=== PATIENT | male | born 1930 | race Caucasian/White ===

== ENCOUNTER → 2017-01-07 | Outpatient (CLI) | payer MEDICARE, OTHER ==
[2017-01-07 12:21] LABS: Basophils # (auto) 0 uL; Basophils % (auto) 0.6 % (0.0-2.0); Eosinophils # (auto) 0.3 uL; Hemoglobin 12.7 g/dL (13.5-17.5); Lymphocytes # (auto) 1.6 uL; Lymphocytes % (auto) 28.9 % (10.0-50.0); Mean Corpuscular Hemoglobin 28.2 pg (28.0-32.0); Mean Corpuscular Hgb Conc. 32.5 g/dL (32.0-36.0); Mean Corpuscular Volume 86.8 fL (80.0-100.0); Mean Platelet Volume 8.1 fL (7.4-10.4); Monocytes # (auto) 0.6 uL; Monocytes % (auto) 10.9 % (0.0-12.0); Neutrophils # (auto) 2.9 uL; Neutrophils % (auto) 53.6 % (37.0-80.0); Platelet Count (auto) 283 10^3/uL (140-450); Red Cell Distribution Width 17.1 % (11.6-16.0); White Blood Cell 5.4 10^3/uL (4.4-10.8)
[2017-01-07 12:22] LABS: Urine Bilirubin Negative (Negative); Urine Blood Negative /uL (Negative); Urine Color Yellow (Yellow); Urine Glucose Normal (Normal); Urine Ketone Negative (Negative); Urine Nitrite Negative (Negative); Urine Urobilinogen Normal (Negative)
[2017-01-07 13:15] LABS: Albumin 3.7 g/dL (3.4-5.0); BUN/Creatinine Ratio 25.4; Bilirubin, Direct 0.1 mg/dL (0-0.2); Bilirubin, Total 0.3 mg/dL (0.2-1.0); Calcium 9.6 mg/dL (8.5-10.1); Potassium 4.6 mmol/L (3.5-5.1)
== END | disposition home or self-care (01) ==
LOC: LAB 08:16
PROVIDERS: ATTEND Internal Medicine Cardiovascular Disease
DX: I10 Essential (primary) hypertension (principal); E78.00 Pure hypercholesterolemia, unspecified; K74.1 Hepatic sclerosis; E11.9 Type 2 diabetes mellitus without complications; R97.20 Elevated prostate specific antigen [PSA]; R53.81 Other malaise; E03.9 Hypothyroidism, unspecified; D64.9 Anemia, unspecified; E55.9 Vitamin D deficiency, unspecified; N39.0 Urinary tract infection, site not specified
CPT/HCPCS: 36415; 80048; 80061; 80076; 81003; 82306; 83036; 84153; 84403; 84443; 85025

== ENCOUNTER → 2017-06-14 | Outpatient (CLI) | payer MEDICARE, OTHER ==
[~2017-06-14] MED LIST: ASPI-231 PO; CELE200C PO; LEVO25TA6 PO; METF-371 PO; OMEP20CA74 OR; RAMI2.5C33 PO
== END | disposition home or self-care (01) ==
LOC: Rad HDHVI 10:53
PROVIDERS: ATTEND Internal Medicine Cardiovascular Disease
DX: I10 Essential (primary) hypertension (principal); E11.9 Type 2 diabetes mellitus without complications
CPT/HCPCS: 93306

== ENCOUNTER → 2017-06-21 | Outpatient (CLI) | payer MEDICARE, OTHER ==
[2017-06-21 12:30] LABS: Albumin 3.2 g/dL (3.4-5.0); BUN/Creatinine Ratio 18.6; Bilirubin, Total 0.3 mg/dL (0.2-1.0); Potassium 4.2 mmol/L (3.5-5.1); Total Protein 7.4 g/dL (6.4-8.2)
== END | disposition home or self-care (01) ==
LOC: LAB 09:09
PROVIDERS: ATTEND Internal Medicine Cardiovascular Disease
DX: I10 Essential (primary) hypertension (principal); R97.20 Elevated prostate specific antigen [PSA]
CPT/HCPCS: 36415; 80053; 84153

== ENCOUNTER → 2017-07-25 | Outpatient (CLI) | payer MEDICARE, OTHER ==
[2017-07-25 12:53] LABS: Basophils # (auto) 0 uL; Basophils % (auto) 0.7 % (0.0-2.0); Eosinophils # (auto) 0.3 uL; Eosinophils % (auto) 5.5 % (0.0-7.0); Hematocrit 42.6 % (41.0-53.0); Lymphocytes # (auto) 1.4 uL; Lymphocytes % (auto) 26.8 % (10.0-50.0); Mean Corpuscular Hemoglobin 29.5 pg (28.0-32.0); Mean Corpuscular Hgb Conc. 32.9 g/dL (32.0-36.0); Mean Corpuscular Volume 89.9 fL (80.0-100.0); Mean Platelet Volume 7.3 fL (6.9-10.8); Monocytes # (auto) 0.7 uL; Monocytes % (auto) 12.9 % (0.0-12.0); Neutrophils # (auto) 2.8 uL; Neutrophils % (auto) 54.1 % (37.0-80.0); Nucleated Red Blood Cells % 0.5 %; Platelet Count (auto) 329 10^3/uL (140-450); Red Cell Distribution Width 14.6 % (11.8-14.3); White Blood Cell 5.2 10^3/uL (4.4-10.8)
== END | disposition home or self-care (01) ==
LOC: LAB 08:46
PROVIDERS: ATTEND Internal Medicine Cardiovascular Disease
DX: E03.9 Hypothyroidism, unspecified (principal); D64.9 Anemia, unspecified; R53.81 Other malaise
CPT/HCPCS: 36415; 84403; 84443; 85025

== ENCOUNTER → 2018-01-26 | Outpatient (CLI) | payer MEDICARE, OTHER ==
[2018-01-26 12:10] LABS: Urine Blood Negative /uL (Negative); Urine Specific Gravity 1.006 (1.001-1.035)
[2018-01-26 12:15] LABS: Basophils # (auto) 0 uL; Basophils % (auto) 0.6 % (0.0-2.0); Eosinophils # (auto) 0.4 uL; Eosinophils % (auto) 8.1 % (0.0-7.0); Hematocrit 37.3 % (41.0-53.0); Hemoglobin 12.3 g/dL (13.5-17.5); Lymphocytes # (auto) 1.6 uL; Lymphocytes % (auto) 31.6 % (10.0-50.0); Mean Corpuscular Hemoglobin 30.2 pg (28.0-32.0); Mean Corpuscular Volume 91.7 fL (80.0-100.0); Monocytes # (auto) 0.6 uL; Monocytes % (auto) 11.4 % (0.0-12.0); Neutrophils # (auto) 2.4 uL; Neutrophils % (auto) 48.3 % (37.0-80.0); Nucleated Red Blood Cells % 0.6 %; Platelet Count (auto) 305 10^3/uL (140-450); Red Blood Cells 4.06 10^6/uL (4.5-5.90); Red Cell Distribution Width 13.7 % (11.8-14.3); White Blood Cell 5.1 10^3/uL (4.4-10.8)
[2018-01-26 12:18] LABS: Albumin 3.3 g/dL (3.4-5.0); BUN/Creatinine Ratio 14.5; Bilirubin, Total 0.5 mg/dL (0.2-1.0); Calcium 9.3 mg/dL (8.5-10.1); Potassium 4.2 mmol/L (3.5-5.1); Total Protein 7.8 g/dL (6.4-8.2)
[2018-01-26 12:30] LABS: Free T4 (Free Thyroxine) 0.94 ng/dL (0.89-1.76); Prostate Specific Antigen 0.46 ng/mL (0.0-4.0)
== END | disposition home or self-care (01) ==
LOC: LAB 08:02
PROVIDERS: ATTEND Internal Medicine
DX: E78.5 Hyperlipidemia, unspecified (principal); D64.9 Anemia, unspecified; I10 Essential (primary) hypertension; E11.9 Type 2 diabetes mellitus without complications; E03.9 Hypothyroidism, unspecified; E55.9 Vitamin D deficiency, unspecified; R53.81 Other malaise; R97.20 Elevated prostate specific antigen [PSA]; D51.9 Vitamin B12 deficiency anemia, unspecified; N39.0 Urinary tract infection, site not specified
CPT/HCPCS: 36415; 80053; 80061; 81003; 82306; 82607; 83036; 84153; 84403; 84439; 84443; 85025

== ENCOUNTER → 2018-05-16 | Outpatient (CLI) | payer MEDICARE, BC ==
[2018-05-16 12:26] LABS: Basophils # (auto) 0 uL; Basophils % (auto) 0.8 % (0.0-2.0); Eosinophils # (auto) 0.3 uL; Eosinophils % (auto) 8.4 % (0.0-7.0); Hematocrit 37.5 % (41.0-53.0); Hemoglobin 12.4 g/dL (13.5-17.5); Lymphocytes # (auto) 1.3 uL; Lymphocytes % (auto) 35.5 % (10.0-50.0); Mean Corpuscular Hemoglobin 30.1 pg (28.0-32.0); Mean Corpuscular Hgb Conc. 33.2 g/dL (32.0-36.0); Mean Corpuscular Volume 90.7 fL (80.0-100.0); Monocytes # (auto) 0.5 uL; Monocytes % (auto) 13.1 % (0.0-12.0); Neutrophils # (auto) 1.6 uL; Neutrophils % (auto) 42.2 % (37.0-80.0); Nucleated Red Blood Cells % 0.4 %; Platelet Count (auto) 263 10^3/uL (140-450); Red Blood Cells 4.13 10^6/uL (4.5-5.90); White Blood Cell 3.8 10^3/uL (4.4-10.8)
[2018-05-16 12:51] LABS: Albumin 3.5 g/dL (3.4-5.0); BUN/Creatinine Ratio 20.6; Bilirubin, Total 0.4 mg/dL (0.2-1.0); Calcium 8.9 mg/dL (8.5-10.1); Potassium 4.2 mmol/L (3.5-5.1); Total Protein 7.4 g/dL (6.4-8.2)
== END | disposition home or self-care (01) ==
LOC: LAB 09:46
PROVIDERS: ATTEND Internal Medicine Cardiovascular Disease
DX: D64.9 Anemia, unspecified (principal); E11.9 Type 2 diabetes mellitus without complications; I10 Essential (primary) hypertension; Z79.82 Long term (current) use of aspirin; Z79.899 Other long term (current) drug therapy
CPT/HCPCS: 36415; 80053; 83036; 85025

== ENCOUNTER → 2018-07-20 | Outpatient (CLI) | payer MEDICARE, BC | END | disposition home or self-care (01) | LOC: Rad HDHVI 09:57 | PROVIDERS: ATTEND Internal Medicine Cardiovascular Disease | DX: E11.9 Type 2 diabetes mellitus without complications (principal); G47.33 Obstructive sleep apnea (adult) (pediatric); R55 Syncope and collapse | CPT/HCPCS: 93306 ==

== ENCOUNTER → 2018-11-23 | Outpatient (CLI) | payer MEDICARE, BC ==
[2018-11-23 15:00] LABS: Basophils # (auto) 0 uL; Basophils % (auto) 0.4 % (0.0-2.0); Eosinophils # (auto) 0.1 uL; Eosinophils % (auto) 1.6 % (0.0-7.0); Hematocrit 38.5 % (41.0-53.0); Hemoglobin 13.1 g/dL (13.5-17.5); Lymphocytes # (auto) 1.9 uL; Lymphocytes % (auto) 31.1 % (10.0-50.0); Mean Corpuscular Hemoglobin 31.4 pg (28.0-32.0); Mean Corpuscular Hgb Conc. 33.9 g/dL (32.0-36.0); Mean Corpuscular Volume 92.6 fL (80.0-100.0); Monocytes # (auto) 0.6 uL; Monocytes % (auto) 9.5 % (0.0-12.0); Neutrophils # (auto) 3.5 uL; Neutrophils % (auto) 57.4 % (37.0-80.0); Nucleated Red Blood Cells % 0.2 %; Platelet Count (auto) 256 10^3/uL (140-450); Red Blood Cells 4.16 10^6/uL (4.5-5.90); Red Cell Distribution Width 14.6 % (11.8-14.3)
[2018-11-23 15:02] LABS: Urine Blood Negative /uL (Negative); Urine Specific Gravity 1.005 (1.001-1.035)
[2018-11-23 15:22] LABS: Albumin 3.7 g/dL (3.4-5.0); BUN/Creatinine Ratio 21.2; Calcium 9.3 mg/dL (8.5-10.1); Potassium 3.8 mmol/L (3.5-5.1)
[2018-11-23 15:25] LABS: Free T4 (Free Thyroxine) 1.48 ng/dL (0.89-1.76); Prostate Specific Antigen 0.29 ng/mL (0.0-4.0)
[2018-11-23 15:26] LABS: Bilirubin, Total 0.6 mg/dL (0.2-1.0); Total Protein 7.5 g/dL (6.4-8.2)
== END | disposition home or self-care (01) ==
LOC: LAB 13:32
PROVIDERS: ATTEND Internal Medicine Cardiovascular Disease
DX: E55.9 Vitamin D deficiency, unspecified (principal); E03.9 Hypothyroidism, unspecified; E11.9 Type 2 diabetes mellitus without complications; C61 Malignant neoplasm of prostate; D51.9 Vitamin B12 deficiency anemia, unspecified; E29.1 Testicular hypofunction; N39.0 Urinary tract infection, site not specified
CPT/HCPCS: 36415; 80053; 80061; 81003; 82306; 82607; 83036; 84153; 84403; 84439; 84443; 85025

== ENCOUNTER → 2019-02-05 | Outpatient (CLI) | payer MEDICARE, BC ==
[~2019-02-05] VITALS: Ht 175.3 cm; Wt 68.0 kg
[~2019-02-05] MED LIST changes: +ADENOSINE 57 MG in GIVE UN-DILUTED 0 ML IV ONE; +ADENOSINE 90 MG/30 ML INJ IV ONE
== END | disposition home or self-care (01) ==
LOC: Rad HDHVI 09:56
PROVIDERS: ATTEND Internal Medicine Cardiovascular Disease
DX: E11.40 Type 2 diabetes mellitus with diabetic neuropathy, unspecified (principal); E11.59 Type 2 diabetes mellitus with other circulatory complications; I10 Essential (primary) hypertension; M19.90 Unspecified osteoarthritis, unspecified site; R07.89 Other chest pain
CPT/HCPCS: 78452; 93005; 96374; 96375; A9500

== ENCOUNTER → 2019-05-01 | Outpatient (CLI) | payer MEDICARE, BC ==
[~2019-05-01] MED LIST changes: -ADENOSINE 57 MG in GIVE UN-DILUTED 0 ML IV ONE; -ADENOSINE 90 MG/30 ML INJ IV ONE
== END | disposition home or self-care (01) ==
LOC: Rad HDHVI 09:57
PROVIDERS: ATTEND Internal Medicine Cardiovascular Disease
DX: I65.23 Occlusion and stenosis of bilateral carotid arteries (principal); R07.89 Other chest pain; R42 Dizziness and giddiness; E11.9 Type 2 diabetes mellitus without complications
CPT/HCPCS: 93880

== ENCOUNTER 2019-12-17 12:10 | Inpatient (IN) | payer MEDICARE, BC ==
[~2019-12-17] VITALS: Ht 175.3 cm; Wt 69.3 kg
[2019-12-17] MEDS ORDERED: IPRATROPIUM BROM 0.5 MG/2.5ML INH SOL HHN ONE (12:30)
[2019-12-17] MEDS ORDERED: ALBUTEROL SULF 2.5 MG/0.5ML(0.5%) NEB SOLN HHN ONE (12:30)
[2019-12-17] MEDS ORDERED: levoFLOXacin 500MG 100 ML IV ONE (12:30)
[2019-12-17] MEDS ORDERED: ACETAMINOPHEN 325 MG TAB PO ONE ×3 (12:42→12:45)
[2019-12-17 13:13] LABS: Hemoglobin 11.5 g/dL (13.5-17.5); Mean Corpuscular Hemoglobin 26.4 pg (28.0-32.0); Red Blood Cells 4.35 10^6/uL (4.5-5.90)
[2019-12-17 13:14] LABS: Hematocrit 36.2 % (41.0-53.0); Mean Corpuscular Hgb Conc. 31.8 g/dL (32.0-36.0); Mean Corpuscular Volume 83.3 fL (80.0-100.0); Platelet Count (auto) 206 10^3/uL (140-450); Red Cell Distribution Width 16.1 % (11.8-14.3); White Blood Cell 10.2 10^3/uL (4.4-10.8)
[2019-12-17 13:19] LABS: Band Neutrophils % (manual) 0; Basophils % (manual) 0 (0.0-2.0); Blast Cells 0; Metamyelocytes % 0; Myelocytes % 0; Promyelocytes % 0; Reactive Lymphocytes 0
[2019-12-17 13:29] LABS: Albumin 2.6 g/dL (3.4-5.0); Calcium 9.1 mg/dL (8.5-10.1); Potassium 3.9 mmol/L (3.5-5.1)
[2019-12-17 13:34] LABS: BUN/Creatinine Ratio 40.2; Bilirubin, Total 1.4 mg/dL (0.2-1.0); Total Protein 7.4 g/dL (6.4-8.2)
[2019-12-17 13:35] LABS: Lactic Acid w/Reflex 2.4 mmol/L (0.4-2.0)
[2019-12-17 13:44] LABS: Eosinophils % (manual) 10 (0-7); Lymphocytes % (manual) 28 (10.0-50.0); Monocytes % (manual) 7 (0-12)
[2019-12-17] MEDS ORDERED: SODIUM CHLORIDE 0.9% 2,000 ML IV ONE (14:00)
[2019-12-17] MEDS ORDERED: ONDANSETRON HCL 4 MG/2 ML VIAL IV PRN (15:30)
[2019-12-17] MEDS ORDERED: MORPHINE SULF INJ 2 MG/ML SYRINGE 1ML IV PRN ×2 (15:30)
[2019-12-17] MEDS ORDERED: NITROGLYCERIN 0.4 MG SL TAB SL PRN (15:30)
[2019-12-17] MEDS ORDERED: ASPirin-EC 81 mg tab PO ONE (15:30)
[2019-12-17] MEDS ORDERED: HYDROcodone-ACET 5/325MG TAB PO PRN (15:30)
[2019-12-17] MEDS ORDERED: DEXTROSE (50%) 50ML SYRG IV PRN (15:30)
[2019-12-17] MEDS ORDERED: VANCOMYCIN PER PHARMACY 0 MG IV SCH (15:30)
[2019-12-17 15:32] VITALS: BP 92/50
[2019-12-17] MEDS ORDERED: VANCOMYCIN 1GM/250ML 250 ML IV ONE (15:45)
[2019-12-17 16:05] LABS: Urine WBC None Seen /hpf (0 - 3)
[2019-12-17 16:16] LABS: Urine Bacteria NONE SEEN /hpf (None Seen); Urine Blood 1+ /uL (Negative); Urine Mucus FEW (None Seen); Urine Specific Gravity 1.028 (1.001-1.035)
[2019-12-17] MEDS: InsuLIN REG 1unit/0.01ml Soln (100units/ml) SC SCH ×2 (16:31→23:00)
[2019-12-17] MEDS: ACCU-CHEK COMFORT CURVE STRIP VI SCH ×2 (16:31→23:00)
[2019-12-17] MEDS: PIPERACILLIN-TAZOB 3.375GM 100 ML IV SCH (18:12)
[2019-12-17] MEDS: IPRATROPIUM BROM 0.5 MG/2.5ML INH SOL NEB SCH (18:52)
[2019-12-17] MEDS: ATORVASTATIN 20 MG TAB PO SCH (23:00)
[2019-12-18] VITALS (26 sets, daily range): BP systolic 72–111; BP diastolic 42–73
[2019-12-18] MEDS: PIPERACILLIN-TAZOB 3.375GM 100 ML IV SCH ×4 (00:30→22:23)
--- NOTE | 2019-12-18 02:20 | NUR ---
Pt being admitted to ICU GUILHERME CANELA admitted to ICU via gurney on threat monitoring analyst, and portable 02. Patient transferred to bed, connected to ICU monitoring and oxygen, and weighed by bedscale. Patient oriented to Emily moses RN, unit, room, bed, and unit policies regarding patient care and visiting hours. All questions and concerns addressed, patient verbalized understanding.
[2019-12-18] MEDS ORDERED: NOREPINEPHRINE 8 MG/250ML KIT 250 ML IV ONE (03:58)
[2019-12-18] MEDS ORDERED: NOREPINEPHRINE 8 MG/250ML KIT 250 ML IV SCH (04:15)
[2019-12-18 04:23] LABS: Basophils # (auto) 0 10 ^3/uL (0-0.2); Basophils % (auto) 0.1 % (0.0-2.0); Eosinophils # (auto) 0 10 ^3/uL (0-0.8); Lymphocytes # (auto) 0.3 10 ^3/uL (0.4-5.4); Lymphocytes % (auto) 3.3 % (10.0-50.0); Mean Corpuscular Hemoglobin 27.1 pg (28.0-32.0); Mean Corpuscular Hgb Conc. 33.4 g/dL (32.0-36.0); Mean Corpuscular Volume 81.3 fL (80.0-100.0); Monocytes # (auto) 0.3 10 ^3/uL (0-1.3); Monocytes % (auto) 3.7 % (0.0-12.0); Neutrophils # (auto) 8.6 10 ^3/uL (1.6-8.6); Neutrophils % (auto) 92.9 % (37.0-80.0); Nucleated Red Blood Cells % 0.1 %; Platelet Count (auto) 198 10^3/uL (140-450); Red Blood Cells 3.69 10^6/uL (4.5-5.90); Red Cell Distribution Width 15.5 % (11.8-14.3); White Blood Cell 9.3 10^3/uL (4.4-10.8)
[2019-12-18 04:45] LABS: BUN/Creatinine Ratio 45.8; Calcium 8.3 mg/dL (8.5-10.1); Potassium 3.2 mmol/L (3.5-5.1)
[2019-12-18] MEDS: IPRATROPIUM BROM 0.5 MG/2.5ML INH SOL NEB SCH ×4 (06:00→18:17)
[2019-12-18] MEDS: InsuLIN REG 1unit/0.01ml Soln (100units/ml) SC SCH ×4 (06:04→22:00)
[2019-12-18] MEDS: ACCU-CHEK COMFORT CURVE STRIP VI SCH ×4 (06:04→22:24)
--- NOTE | 2019-12-18 08:00 | NUR ---
OPENING Report received from Leora HERRERA. Care initiated and initial assessment complete.
[2019-12-18] MEDS: ASPirin-EC 81 mg tab PO SCH (10:24)
[2019-12-18] MEDS: FAMOTIDINE 20 MG TAB PO SCH (10:24)
[2019-12-18] MEDS: VANCOMYCIN 1GM/250ML 250 ML IV SCH (10:25)
--- NOTE | 2019-12-18 14:00 | NUR ---
BEDSIDE Dr. Frost bedside. New orders received.
[2019-12-18] MEDS ORDERED: POTASSIUM CHL 20 Meq TABLET PO ONE (14:15)
--- NOTE | 2019-12-18 17:50 | NUR ---
PAGED TOBACCO SWEEPER Paged Eusebia TOBACCO SWEEPER. Patient may go to tele. Will let Dr. Benites know patient is being moved.
[2019-12-18] MEDS ORDERED: TAMS0.4C36 PO (18:00)
[2019-12-18] MEDS ORDERED: CLOP75TA28 PO (18:00)
[2019-12-18] MEDS ORDERED: LINA145C OR (18:00)
[2019-12-18] MEDS ORDERED: GLYB2.5T8 PO (18:01)
[2019-12-18] MEDS ORDERED: FOLITAB22 PO (18:01)
[2019-12-18] MEDS ORDERED: [UNRECOGNIZED DRUG - CODE] XX (18:01)
[2019-12-18] MEDS: ALBUTEROL SULF 2.5 MG/0.5ML(0.5%) NEB SOLN NEB SCH (18:17)
--- NOTE | 2019-12-18 18:41 | NUR ---
CALLED FAMILY Called and spoke to Leticia, patients daughter, updated her on COVID19 rule out and transfer orders. All questions and concerns addressed at this time.
--- NOTE | 2019-12-18 19:45 | NUR ---
OPENING NOTE RECEIVED REPORT FROM DAY SHIFT RN AND ASSUMED CARE OF PATIENT. PT RESTING IN BED WHILE EATING DINNER WITH STABLE VITAL SIGNS. 5L NASAL CANNULA APPLIED. NO S/S PF DISTRESS. BED IS LOCKED AND IN THE LOWEST POSITION. EDUCATED PT ELECTRIC APPLIANCE INSTALLER LIGHT USE AND FALL PRECAUTIONS. WILL CONTINUE TO MONITOR AND ASSESS.
--- NOTE | 2019-12-18 20:52 | NUR ---
PT TRANSFERRED TO TELEMETRY FLOOR WITH TELE MONITOR APPLIED IN BED. 5 L NC ON PORTABLE OXYGEN. NO S/S OF DISTRESS NOTED WITH VITAL SIGNS STABLE.
--- NOTE | 2019-12-18 21:00 | NUR ---
PATIENT TRANSFERRED TO ROOM 293 BED B FROM ICU. NO S/S OF DISTRESS NOTED, PATIENT A&OX4 ON 5L NC. NO COMPLAINTS OF PAIN. POC WAS DISCUSSED AND PATIENT EDUCATED ON US OF INCENTIVE SPIROMETER. PATIENT VERBALIZED UNDERSTANDING. BED IS LOCKED IN LOWEST POSITION WITH SIDE RAILS UP X2 FOR SAFETY, CALL LIGHT IS WITHIN REACH AND ENCOURAGED TO CALL FOR ASSISTANCE NEEDED. WILL CONTINUE TO MONITOR Q1HR AND PRN.
[2019-12-18] MEDS: ATORVASTATIN 20 MG TAB PO SCH (22:24)
[2019-12-19] MEDS: VANCOMYCIN 1GM/250ML 250 ML IV SCH (04:18)
[2019-12-19 05:00] VITALS: BP 99/62
[2019-12-19] MEDS: PIPERACILLIN-TAZOB 3.375GM 100 ML IV SCH ×3 (05:52→22:08)
[2019-12-19] MEDS: ALBUTEROL SULF 2.5 MG/0.5ML(0.5%) NEB SOLN NEB SCH ×3 (06:33→18:54)
[2019-12-19] MEDS: IPRATROPIUM BROM 0.5 MG/2.5ML INH SOL NEB SCH ×3 (06:33→18:54)
[2019-12-19] MEDS: ACCU-CHEK COMFORT CURVE STRIP VI SCH ×4 (06:58→22:12)
[2019-12-19] MEDS: InsuLIN REG 1unit/0.01ml Soln (100units/ml) SC SCH ×4 (06:58→22:51)
[2019-12-19 07:05] LABS: Basophils # (auto) 0 10 ^3/uL (0-0.2); Basophils % (auto) 0.3 % (0.0-2.0); Eosinophils # (auto) 0 10 ^3/uL (0-0.8); Eosinophils % (auto) 0.3 % (0.0-7.0); Hematocrit 29.6 % (41.0-53.0); Hemoglobin 9.8 g/dL (13.5-17.5); Lymphocytes # (auto) 0.4 10 ^3/uL (0.4-5.4); Mean Corpuscular Hemoglobin 27.1 pg (28.0-32.0); Mean Corpuscular Hgb Conc. 33.1 g/dL (32.0-36.0); Monocytes # (auto) 0.6 10 ^3/uL (0-1.3); Monocytes % (auto) 5.4 % (0.0-12.0); Neutrophils # (auto) 9.8 10 ^3/uL (1.6-8.6); Nucleated Red Blood Cells % 0.1 %; Platelet Count (auto) 208 10^3/uL (140-450); Red Blood Cells 3.61 10^6/uL (4.5-5.90); Red Cell Distribution Width 15.6 % (11.8-14.3); White Blood Cell 10.9 10^3/uL (4.4-10.8)
[2019-12-19 07:23] LABS: Calcium 8.3 mg/dL (8.5-10.1); Potassium 3.2 mmol/L (3.5-5.1)
--- NOTE | 2019-12-19 07:42 | NUR ---
Opening Shift Note Assumed care of patient. Pt is awake, alert, and oriented x4. Pt is coughing. No S/S of respiratory distress is noted. Patient does not report SOB, nausea,vomiting or pain. Pt is instructed on using IS and IS at bedside. Pt is on 4 lpm NC. Bed is in lowest position, brakes are locked, call light is within reach. POC discussed with the pt. Pt is instructed to call for assistance as needed. Will continue to monitor for changes Q1hr and PRN.
[2019-12-19 09:00] VITALS: BP 103/61
[2019-12-19] MEDS: ASPirin-EC 81 mg tab PO SCH (10:01)
[2019-12-19] MEDS: FAMOTIDINE 20 MG TAB PO SCH (10:02)
[2019-12-19] MEDS ORDERED: FUROSEMIDE 20 MG/2 ML VIAL IV ONE (12:30)
[2019-12-19] MEDS ORDERED: POTASSIUM CHL 20 Meq TABLET PO ONE (12:30)
[2019-12-19 13:00] VITALS: BP 94/61
[2019-12-19 17:24] VITALS: BP 101/66
[2019-12-19 22:00] VITALS: BP 93/54
[2019-12-19] MEDS: ATORVASTATIN 20 MG TAB PO SCH (22:08)
--- NOTE | 2019-12-20 04:41 | NUR ---
Respiratory note: PAGED TO BEDSIDE. PT SPO2 NOTED AT 87% ON 4L NC, PT IS TALKING TO RN, NOT FOCUSING ON BREATHING. PT PLACED ON 6L OXYMIZER, COACHED ON BREATHING. SPO2 INCREASED TO 90%. RN AT BEDSIDE. WILL CONTINUE TO MONITOR.
--- NOTE | 2019-12-20 04:43 | NUR ---
PATIENTS O2 WAS 87% ON NASAL CANNULA AT 4L. RT PAGED AT THAT TIME. PATIENT IS NOW ON OXYMIZER AT 5L AND O2 IS NOW 91. PATIENT HAS NO COMPLAINTS OF FEELING SHORT OF BREATH. WILL CONTINUE TO MONITOR.
[2019-12-20 05:00] VITALS: BP 97/50
[2019-12-20] MEDS: PIPERACILLIN-TAZOB 3.375GM 100 ML IV SCH (06:02)
[2019-12-20 06:12] LABS: Basophils # (auto) 0 10 ^3/uL (0-0.2); Basophils % (auto) 0.2 % (0.0-2.0); Eosinophils # (auto) 0.1 10 ^3/uL (0-0.8); Eosinophils % (auto) 0.6 % (0.0-7.0); Hematocrit 27.1 % (41.0-53.0); Hemoglobin 9.3 g/dL (13.5-17.5); Lymphocytes # (auto) 0.6 10 ^3/uL (0.4-5.4); Lymphocytes % (auto) 6.1 % (10.0-50.0); Mean Corpuscular Hemoglobin 27.6 pg (28.0-32.0); Mean Corpuscular Hgb Conc. 34.1 g/dL (32.0-36.0); Monocytes # (auto) 0.7 10 ^3/uL (0-1.3); Monocytes % (auto) 7.9 % (0.0-12.0); Neutrophils # (auto) 7.7 10 ^3/uL (1.6-8.6); Neutrophils % (auto) 85.2 % (37.0-80.0); Nucleated Red Blood Cells % 0.1 %; Platelet Count (auto) 239 10^3/uL (140-450); Red Blood Cells 3.35 10^6/uL (4.5-5.90); Red Cell Distribution Width 15.6 % (11.8-14.3)
[2019-12-20 06:31] LABS: BUN/Creatinine Ratio 21.6; Calcium 8.5 mg/dL (8.5-10.1)
[2019-12-20] MEDS: InsuLIN REG 1unit/0.01ml Soln (100units/ml) SC SCH ×4 (06:42→21:33)
[2019-12-20] MEDS: ACCU-CHEK COMFORT CURVE STRIP VI SCH ×4 (06:42→21:33)
[2019-12-20] MEDS: ALBUTEROL SULF 2.5 MG/0.5ML(0.5%) NEB SOLN NEB SCH ×3 (06:54→18:51)
--- NOTE | 2019-12-20 07:35 | NUR ---
Opening Shift Note Assumed care of patient. Pt is awake, alert, and oriented x4. Pt is comfortably resting in bd. No S/S of respiratory distress is noted. Patient does not report SOB, nausea,vomiting or pain. Pt is instructed on using IS and IS at bedside. Pt is on 6 lpm O2. Bed is in lowest position, brakes are locked, call light is within reach. POC discussed with the pt. Pt is instructed to call for assistance as needed. Will continue to monitor for changes Q1hr and PRN.
[2019-12-20 09:00] VITALS: BP 100/52
[2019-12-20] MEDS: ASPirin-EC 81 mg tab PO SCH (09:56)
[2019-12-20] MEDS: FAMOTIDINE 20 MG TAB PO SCH (09:56)
[2019-12-20] MEDS: IPRATROPIUM BROM 0.5 MG/2.5ML INH SOL NEB SCH ×3 (11:38→18:52)
--- NOTE | 2019-12-20 12:10 | NUR ---
DOCTOR ERNIE AT BEDSIDE.
[2019-12-20] MEDS ORDERED: FUROSEMIDE 40 MG TAB PO ONE (12:30)
[2019-12-20] MEDS ORDERED: POTASSIUM CHL 20 Meq TABLET PO ONE ×2 (12:30)
--- NOTE | 2019-12-20 12:30 | NUR ---
DOCTOR RIOS AT BEDSIDE.
[2019-12-20 13:00] VITALS: BP 106/53
[2019-12-20 18:16] VITALS: BP 102/50
--- NOTE | 2019-12-20 19:15 | NUR ---
Opening Shift Note Assumed care of patient, awake, alert and oriented x4, on oxygen at 4L via NC, even and unlabored respirations, no S/S of distress/SOB or pain. Bed in lowest locked position, side rails up x2, call light within reach, and patient able to turn independently. Instructed on POC and to call for assist PRN, will continue to monitor for changes Q1hr and PRN.
[2019-12-20] MEDS: ATORVASTATIN 20 MG TAB PO SCH (21:33)
[2019-12-20] MEDS: DOXYCYCLINE 100 MG TAB/CAP PO SCH (21:33)
[2019-12-20 22:00] VITALS: BP 108/64
[2019-12-20] MEDS ORDERED: POTASSIUM EFFERVESENT TAB 25 MEQ GT SCH (22:00)
[2019-12-21 05:00] VITALS: BP 106/59
[2019-12-21] MEDS: ALBUTEROL SULF 2.5 MG/0.5ML(0.5%) NEB SOLN NEB SCH ×3 (05:49→18:29)
[2019-12-21] MEDS: IPRATROPIUM BROM 0.5 MG/2.5ML INH SOL NEB SCH ×3 (05:49→18:29)
[2019-12-21] MEDS: ACCU-CHEK COMFORT CURVE STRIP VI SCH ×4 (06:54→21:45)
[2019-12-21] MEDS: InsuLIN REG 1unit/0.01ml Soln (100units/ml) SC SCH ×4 (06:54→21:47)
[2019-12-21 07:12] LABS: BUN/Creatinine Ratio 23.4; Calcium 8.4 mg/dL (8.5-10.1); Potassium 3.2 mmol/L (3.5-5.1)
--- NOTE | 2019-12-21 08:00 | NUR ---
Opening Shift Note Received report from Talib HERRERA. Assumed care of patient, awake and alert. No S/S of distress/SOB or pain. NOted productive cough. Instructed on POC and to call for assist PRN, will continue to monitor for changes Q1hr and PRN.
[2019-12-21 09:00] VITALS: BP 93/46
[2019-12-21] MEDS: FUROSEMIDE 40 MG TAB PO SCH (10:00)
[2019-12-21] MEDS: DOXYCYCLINE 100 MG TAB/CAP PO SCH ×2 (10:28→21:44)
[2019-12-21] MEDS: ASPirin-EC 81 mg tab PO SCH (10:28)
[2019-12-21] MEDS: FAMOTIDINE 20 MG TAB PO SCH (10:28)
[2019-12-21] MEDS: POTASSIUM CHL 20 Meq TABLET PO SCH (10:28)
[2019-12-21 13:00] VITALS: BP 106/62
--- NOTE | 2019-12-21 13:05 | NUR ---
Dr Frost at [facility] Addendum: 12/21/19 at 1312 by DB COSTA RN received new verbal order from dr frost.see orders
--- NOTE | 2019-12-21 15:25 | NUR ---
INFORMED DR RIOS ABOUT PATIENT SEEMS TO BE MORE CONFUSED.
--- NOTE | 2019-12-21 15:30 | NUR ---
PATIENT IS TAKEN TO RADIOLOGY BY BED FOR CT SCAN OF THE HEAD.
--- NOTE | 2019-12-21 15:39 | NUR ---
PATIENT IS BACK TO ROOM. ASSISTED BY 2 TECHS. POSITIONED PATIENT COMFORTABLY. HEAD CT DONE.
--- NOTE | 2019-12-21 15:52 | NUR ---
assessment Patient is a 89 year old male who is alert and oriented. Patients cognitive abilities are intact. Prior to admission patient lived home with family and functioned independently. Patient informed me he is able to care for his own ADLs. Per patient he will return home to his prior living arrangements post discharge and family will transport him home. Patient has a fww for home use. Patients PCP is Dr Benites. Patient informed me he has no concerns at home. Patient may need some home health after his hospital stay. I informed patient he has a right to speak to a director of social work regarding all care. I informed patient he has a right to participate in any and all discharge planning. Patient has a POA and advanced directive. Patient verbalized understanding and agreed to discharge plan. Addendum: 12/21/19 at 1556 by Lis RICHARDS Amended: Links added.
[2019-12-21 16:23] VITALS: BP 112/64
--- NOTE | 2019-12-21 19:10 | NUR ---
Opening Shift Note Assumed care of patient, awake, alert and oriented x4, on 6L of oxygen via oxymizer, even and unlabored respirations, no S/S of distress/SOB or pain. Bed in lowest locked position, side rails up x2, call light within reach, and patient is able to turn independently. Instructed on POC and to call for assist PRN, will continue to monitor for changes Q1hr and PRN.
[2019-12-21 21:24] VITALS: BP 105/65
[2019-12-21] MEDS: ATORVASTATIN 20 MG TAB PO SCH (21:44)
[2019-12-22 05:16] VITALS: BP 105/59
[2019-12-22 06:15] LABS: Basophils # (auto) 0 10 ^3/uL (0-0.2); Basophils % (auto) 0.1 % (0.0-2.0); Eosinophils # (auto) 0.1 10 ^3/uL (0-0.8); Eosinophils % (auto) 0.9 % (0.0-7.0); Mean Corpuscular Volume 80.2 fL (80.0-100.0); Monocytes # (auto) 0.6 10 ^3/uL (0-1.3); Nucleated Red Blood Cells % 0.1 %; Red Cell Distribution Width 15.8 % (11.8-14.3); White Blood Cell 8.7 10^3/uL (4.4-10.8)
[2019-12-22 06:20] LABS: Lymphocytes # (auto) 0.7 10 ^3/uL (0.4-5.4); Lymphocytes % (auto) 8.2 % (10.0-50.0); Mean Corpuscular Hemoglobin 26.7 pg (28.0-32.0); Mean Corpuscular Hgb Conc. 33.3 g/dL (32.0-36.0); Monocytes % (auto) 6.5 % (0.0-12.0); Neutrophils # (auto) 7.4 10 ^3/uL (1.6-8.6); Neutrophils % (auto) 84.3 % (37.0-80.0); Platelet Count (auto) 355 10^3/uL (140-450); Red Blood Cells 3.74 10^6/uL (4.5-5.90)
[2019-12-22 06:28] LABS: BUN/Creatinine Ratio 21.7; Calcium 8.7 mg/dL (8.5-10.1); Potassium 3.4 mmol/L (3.5-5.1)
[2019-12-22] MEDS: ALBUTEROL SULF 2.5 MG/0.5ML(0.5%) NEB SOLN NEB SCH ×3 (06:42→18:24)
[2019-12-22] MEDS: IPRATROPIUM BROM 0.5 MG/2.5ML INH SOL NEB SCH ×3 (06:42→18:24)
[2019-12-22] MEDS: ACCU-CHEK COMFORT CURVE STRIP VI SCH ×4 (06:43→22:00)
[2019-12-22] MEDS: InsuLIN REG 1unit/0.01ml Soln (100units/ml) SC SCH ×4 (06:43→22:00)
--- NOTE | 2019-12-22 07:45 | NUR ---
FAMILY CALLED STATION PASSWORD VERIFIED AND FAMILY UPDATED ON POC
[2019-12-22 09:00] VITALS: BP 101/69
[2019-12-22] MEDS: FUROSEMIDE 40 MG TAB PO SCH (10:00)
[2019-12-22] MEDS: DOXYCYCLINE 100 MG TAB/CAP PO SCH ×2 (10:14→22:39)
[2019-12-22] MEDS: POTASSIUM CHL 20 Meq TABLET PO SCH (10:14)
[2019-12-22] MEDS: ASPirin-EC 81 mg tab PO SCH (10:14)
[2019-12-22] MEDS: FAMOTIDINE 20 MG TAB PO SCH (10:15)
--- NOTE | 2019-12-22 12:00 | NUR ---
FAMILY CALLED STATION PASSWORD VERIFIED AND FAMILY UPDATED ON POC
[2019-12-22] MEDS ORDERED: POTASSIUM EFFERVESENT TAB 25 MEQ PO ONE (12:15)
--- NOTE | 2019-12-22 12:32 | NUR ---
SPO2 CHECK SPO2 95% ON 6L OXYMIZER OXYGEN TITRATED DOWN TO 5L OXYMIZER
[2019-12-22 13:00] VITALS: BP 119/61
--- NOTE | 2019-12-22 14:22 | NUR ---
SPO2 CHECK SPO2 94% ON 5L OXYMIZER OXYGEN TITRATED DOWN TO 4L OXYMIZER
--- NOTE | 2019-12-22 15:00 | NUR ---
SPO2 CHECK SPO2 88% ON 4L OXYMIZER OXYGEN TITRATED DOWN TO 5L OXYMIZER
--- NOTE | 2019-12-22 15:52 | NUR ---
FAMILY CALLED STATION PASSWORD VERIFIED AND FAMILY UPDATED ON POC
[2019-12-22 17:00] VITALS: BP 113/68
--- NOTE | 2019-12-22 19:00 | NUR ---
Opening Shift Note Assumed care of patient, awake and alert. No S/S of distress/SOB or pain. Instructed on POC and to call for assist PRN, will continue to monitor for changes Q1hr and PRN.
[2019-12-22 21:13] VITALS: BP 97/47
[2019-12-22] MEDS: ATORVASTATIN 20 MG TAB PO SCH (22:39)
[2019-12-23 04:38] VITALS: BP 92/51
[2019-12-23 06:08] LABS: Magnesium 1.6 mg/dL (1.6-2.6)
[2019-12-23] MEDS: ALBUTEROL SULF 2.5 MG/0.5ML(0.5%) NEB SOLN NEB SCH ×3 (06:18→18:55)
[2019-12-23] MEDS: IPRATROPIUM BROM 0.5 MG/2.5ML INH SOL NEB SCH ×3 (06:18→18:56)
[2019-12-23] MEDS: InsuLIN REG 1unit/0.01ml Soln (100units/ml) SC SCH ×4 (06:58→22:00)
[2019-12-23] MEDS: ACCU-CHEK COMFORT CURVE STRIP VI SCH ×4 (06:58→22:00)
--- NOTE | 2019-12-23 07:22 | NUR ---
Opening Shift Note Assumed care of patient, awake, alert and oriented x4, on 5L of oxygen via oxymizer, even and unlabored respirations, no S/S of distress/SOB or pain. Bed in lowest locked position, side rails up x2, call light within reach, and patient is able to turn independently. Instructed on POC and to call for assist PRN, will continue to monitor for changes Q1hr and PRN.
[2019-12-23 08:49] VITALS: BP 92/51
[2019-12-23 09:00] VITALS: BP_SYST 119; BP_SYST 126; BP_DIAS 57; BP_DIAS 75
[2019-12-23] MEDS: FUROSEMIDE 40 MG TAB PO SCH (09:49)
[2019-12-23] MEDS: POTASSIUM CHL 20 Meq TABLET PO SCH (09:49)
[2019-12-23] MEDS: FAMOTIDINE 20 MG TAB PO SCH (09:49)
[2019-12-23] MEDS: DOXYCYCLINE 100 MG TAB/CAP PO SCH ×2 (09:49→23:00)
[2019-12-23] MEDS: ASPirin-EC 81 mg tab PO SCH (09:49)
--- NOTE | 2019-12-23 11:22 | NUR ---
SPO2 CHECK SPO2 93% ON 5L OXYMIZER OXYGEN TITRATED DOWN TO 4L OXYMIZER
[2019-12-23] MEDS ORDERED: MAGNESIUM SULFATE 1GM/100ML 100 ML IV ONE (12:15)
--- NOTE | 2019-12-23 12:22 | NUR ---
FAMILY CALLED STATION PASSWORD VERIFIED AND FAMILY UPDATED ON POC
[2019-12-23 13:00] VITALS: BP 93/54
--- NOTE | 2019-12-23 14:16 | NUR ---
Nutrition Assessment Notes Please refer to link for full assessment notes. Est energy needs: 6685-7381 kcals (23-25 kcal/kgBW) Est protein needs: 73-80 gms/day (1.0-1.1 gm/kgBW) Will continue to monitor and reassess prn. Addendum: 12/23/19 at [address] Amended: Links added.
--- NOTE | 2019-12-23 15:45 | NUR ---
IV insertion IV access obtained, via clean sterile technique by inserting 20 gauge catheter at RIGHT FOREARM after 1 attempt. IV secured properly. No trauma to site. Patient tolerated well. IV removal IV DC'd with clean sterile technique, catheter fully intact. Pressure dressing applied to site. Patient tolerated well.
[2019-12-23 17:00] VITALS: BP 111/52
[2019-12-23 21:00] VITALS: BP 93/56
[2019-12-23] MEDS: ATORVASTATIN 20 MG TAB PO SCH (22:59)
[2019-12-24 04:30] VITALS: BP 111/63
[2019-12-24] MEDS: ACCU-CHEK COMFORT CURVE STRIP VI SCH ×4 (06:52→22:00)
[2019-12-24] MEDS: InsuLIN REG 1unit/0.01ml Soln (100units/ml) SC SCH ×4 (06:52→22:00)
[2019-12-24] MEDS: ALBUTEROL SULF 2.5 MG/0.5ML(0.5%) NEB SOLN NEB SCH ×2 (06:52→12:06)
[2019-12-24] MEDS: IPRATROPIUM BROM 0.5 MG/2.5ML INH SOL NEB SCH ×2 (06:52→12:06)
--- NOTE | 2019-12-24 08:00 | NUR ---
Morning note patient resting in bed with even and unlabored respirations 5 LPM Oxymizer, no distress noted. Instructed patient on POC, fall precautions and to call for assistance as needed. patient verbalized understanding. Fall precautions in place with call light within reach.
[2019-12-24 09:00] VITALS: BP 106/52
--- NOTE | 2019-12-24 09:52 | NUR ---
Patient ambulating with physical chemistry professor.
[2019-12-24] MEDS: ASPirin-EC 81 mg tab PO SCH (10:33)
[2019-12-24] MEDS: FAMOTIDINE 20 MG TAB PO SCH (10:33)
[2019-12-24] MEDS: FUROSEMIDE 40 MG TAB PO SCH (10:33)
[2019-12-24] MEDS: DOXYCYCLINE 100 MG TAB/CAP PO SCH ×2 (10:34→22:22)
[2019-12-24] MEDS: POTASSIUM CHL 20 Meq TABLET PO SCH (10:35)
[2019-12-24 12:33] VITALS: BP 109/66
--- NOTE | 2019-12-24 12:50 | NUR ---
Patient's daughter called for update Password obtained. Update given.
[2019-12-24 17:10] VITALS: BP 110/60
--- NOTE | 2019-12-24 18:40 | NUR ---
Closing note Patient resting in bed with even and unlabored respirations, no distress noted. Fall precautions in place with call light within reach.
--- NOTE | 2019-12-24 19:06 | NUR ---
Care endorsed to SHARON Duran.
[2019-12-24 22:00] VITALS: BP 103/53
[2019-12-24] MEDS: ATORVASTATIN 20 MG TAB PO SCH (22:22)
[2019-12-25 05:00] VITALS: BP 93/50
[2019-12-25 05:52] LABS: Basophils # (auto) 0 10 ^3/uL (0-0.2); Eosinophils # (auto) 0.1 10 ^3/uL (0-0.8); Lymphocytes # (auto) 0.7 10 ^3/uL (0.4-5.4); Monocytes # (auto) 0.6 10 ^3/uL (0-1.3)
[2019-12-25 05:54] LABS: Basophils % (auto) 0.5 % (0.0-2.0); Eosinophils % (auto) 1.9 % (0.0-7.0); Hematocrit 34.2 % (41.0-53.0); Hemoglobin 11.3 g/dL (13.5-17.5); Lymphocytes % (auto) 10.2 % (10.0-50.0); Mean Corpuscular Hemoglobin 26.7 pg (28.0-32.0); Mean Corpuscular Hgb Conc. 33.1 g/dL (32.0-36.0); Mean Corpuscular Volume 80.6 fL (80.0-100.0); Monocytes % (auto) 8.8 % (0.0-12.0); Neutrophils # (auto) 5.7 10 ^3/uL (1.6-8.6); Neutrophils % (auto) 78.6 % (37.0-80.0); Platelet Count (auto) 525 10^3/uL (140-450); Red Blood Cells 4.24 10^6/uL (4.5-5.90); Red Cell Distribution Width 15.6 % (11.8-14.3); White Blood Cell 7.2 10^3/uL (4.4-10.8)
[2019-12-25 06:11] LABS: BUN/Creatinine Ratio 23.1; Calcium 8.8 mg/dL (8.5-10.1); Potassium 4.3 mmol/L (3.5-5.1)
[2019-12-25] MEDS: ALBUTEROL SULF 2.5 MG/0.5ML(0.5%) NEB SOLN NEB SCH ×3 (06:49→19:24)
[2019-12-25] MEDS: IPRATROPIUM BROM 0.5 MG/2.5ML INH SOL NEB SCH ×3 (06:49→19:24)
[2019-12-25] MEDS: ACCU-CHEK COMFORT CURVE STRIP VI SCH ×4 (06:50→22:08)
[2019-12-25] MEDS: InsuLIN REG 1unit/0.01ml Soln (100units/ml) SC SCH ×4 (06:51→22:09)
--- NOTE | 2019-12-25 07:30 | NUR ---
Morning note Patient resting in bed with eyes closed; respirations even and unlabored, no distress noted. Fall precautions in place with call light within reach, bed alarm on for safety.
[2019-12-25 09:17] VITALS: BP 101/56
[2019-12-25] MEDS: FUROSEMIDE 40 MG TAB PO SCH (09:41)
[2019-12-25] MEDS: DOXYCYCLINE 100 MG TAB/CAP PO SCH ×2 (09:41→22:05)
[2019-12-25] MEDS: ASPirin-EC 81 mg tab PO SCH (09:41)
[2019-12-25] MEDS: FAMOTIDINE 20 MG TAB PO SCH (09:41)
[2019-12-25] MEDS: POTASSIUM CHL 20 Meq TABLET PO SCH (09:41)
--- NOTE | 2019-12-25 11:29 | NUR ---
RT NOTE: PT REFUSED TX AT THIS TIME. NO SIGNS OF RESPIRATORY DISTRESS NOTED. SITTING IN CHAIR BEDSIDE. ON 4L SPO2 93 HR 74 RR 18. PT AWARE RESPIRATORY WILL RETURN FOR NEXT SCHEDULED TX.
--- NOTE | 2019-12-25 12:05 | NUR ---
Patient sitting in chair at bedside Respirations even and unlabored on 2 LPM NC, no distress noted. Call light within reach.
--- NOTE | 2019-12-25 12:28 | NUR ---
Patient refused meal tray - patient assisted back to bed Patient refused lunch meal. Patient stated "I don't want that. If I told you why, then you would know. I'll eat the soup." Contact guard assistance provided to assist patient back to bed. No complications noted. Patient tolerated well. Call light within reach.
[2019-12-25 12:53] VITALS: BP 103/60
--- NOTE | 2019-12-25 13:31 | NUR ---
was at bedside - Dr. Frost This RN was at bedside.
--- NOTE | 2019-12-25 13:32 | NUR ---
RE: Platelet level Notified Dr. Frost of elevated platelet level. verbalized understanding.
--- NOTE | 2019-12-25 13:44 | NUR ---
Patient's daughter called for an update Password obtained. Update provided.
--- NOTE | 2019-12-25 13:45 | NUR ---
Patient transferred to radiology via hospital bed. Respirations even and unlabored on 2 LPM NC, no distress noted.
--- NOTE | 2019-12-25 15:15 | NUR ---
MD was at bedside - Dr. Benites Patient okay for discharge on 12/26/19 per MD. Patient to follow up with MD outpatient for a repeat echocardiogram.
[2019-12-25 16:49] VITALS: BP 101/63
--- NOTE | 2019-12-25 17:31 | NUR ---
Patient's daughter called for an update Password obtained. Update provided. Patient's daughter expresses concerns that patient needs to be able to take care of self at home. Patient has verbalized to staff and to his daughter that he feels "very weak". Patient's daughter stated "I don't live here with them. My brother does. My brother has to take care of my mom, who has dementia and needs a lot of help. My dad needs to be able to take care of himself for the most part." Informed patient's daughter that a note will be placed on the patient's hard chart to notify MD of her concerns.
--- NOTE | 2019-12-25 17:32 | NUR ---
Note placed on patient's hard chart to notify MD of patient's daughters concern.
--- NOTE | 2019-12-25 18:39 | NUR ---
Closing note Patient resting in bed with even and unlabored respirations, no distress noted. Fall precautions in place with call light within reach.
--- NOTE | 2019-12-25 19:21 | NUR ---
Care endorsed to SHARON Garcias.
[2019-12-25] MEDS: ATORVASTATIN 20 MG TAB PO SCH (22:05)
[2019-12-25 23:04] VITALS: BP 93/55
--- NOTE | 2019-12-26 02:05 | NUR ---
Received report/SBAR from nurse. Patient sleeping at the moment no signs of distress or pain.
--- NOTE | 2019-12-26 05:00 | NUR ---
Lining dressing change.
[2019-12-26] MEDS: ACCU-CHEK COMFORT CURVE STRIP VI SCH ×4 (06:16→22:24)
[2019-12-26] MEDS: InsuLIN REG 1unit/0.01ml Soln (100units/ml) SC SCH ×4 (06:16→22:24)
--- NOTE | 2019-12-26 07:40 | NUR ---
Opening Shift Note Assumed care of patient. Pt is awake and alert. Pt is comfortably resting in bed. No S/S of respiratory distress is noted. Patient does not report SOB, nausea,vomiting or pain. Pt is instructed on using IS and IS at bedside. Pt is on 2 lpm O2. Bed is in lowest position, brakes are locked, call light is within reach. POC discussed with the pt. Pt is instructed to call for assistance as needed. Will continue to monitor for changes Q1hr and PRN.
[2019-12-26 09:00] VITALS: BP 99/46
[2019-12-26] MEDS: DOXYCYCLINE 100 MG TAB/CAP PO SCH (10:30)
[2019-12-26] MEDS: ASPirin-EC 81 mg tab PO SCH (10:31)
[2019-12-26] MEDS: POTASSIUM CHL 20 Meq TABLET PO SCH (10:31)
[2019-12-26] MEDS: FAMOTIDINE 20 MG TAB PO SCH (10:31)
[2019-12-26] MEDS: FUROSEMIDE 40 MG TAB PO SCH (10:32)
--- NOTE | 2019-12-26 12:47 | NUR ---
DOCTOR RIOS AT BEDSIDE.
[2019-12-26] MEDS: ALBUTEROL SULF 2.5 MG/0.5ML(0.5%) NEB SOLN NEB SCH ×3 (12:48→18:42)
[2019-12-26] MEDS: IPRATROPIUM BROM 0.5 MG/2.5ML INH SOL NEB SCH ×3 (12:48→18:42)
[2019-12-26 13:00] VITALS: BP 98/51
[2019-12-26] MEDS ORDERED: VANCOMYCIN PER PHARMACY 0 MG IV SCH (13:00)
[2019-12-26] MEDS: PIPERACILLIN-TAZOB 3.375GM 100 ML IV SCH ×2 (14:23→21:48)
--- NOTE | 2019-12-26 16:13 | NUR ---
re-assessment Per consult [facility] for PT. Karolina HERRERA spoke with patient and he signed for [facility]. MD order has been sent to [facility]. Per Rosa at [facility] they will resume service on 12/27/2019. Addendum: 12/26/19 at 1616 by Lis Trejo Amended: Links added.
[2019-12-26 16:41] VITALS: BP 104/58
[2019-12-26] MEDS: VANCOMYCIN 1GM/250ML 250 ML IV SCH (17:30)
[2019-12-26] MEDS: ATORVASTATIN 20 MG TAB PO SCH (21:48)
[2019-12-26 22:18] VITALS: BP 104/43
[2019-12-26 22:48] VITALS: BP 104/43
[2019-12-27] MEDS: VANCOMYCIN 1GM/250ML 250 ML IV SCH ×2 (04:55→17:50)
[2019-12-27 05:32] VITALS: BP 94/54
[2019-12-27 05:50] LABS: Basophils # (auto) 0 10 ^3/uL (0-0.2); Basophils % (auto) 0.4 % (0.0-2.0); Eosinophils # (auto) 0.1 10 ^3/uL (0-0.8); Lymphocytes # (auto) 0.7 10 ^3/uL (0.4-5.4); Monocytes # (auto) 0.7 10 ^3/uL (0-1.3); White Blood Cell 7.9 10^3/uL (4.4-10.8)
[2019-12-27 05:54] LABS: Eosinophils % (auto) 1.4 % (0.0-7.0); Hematocrit 32.5 % (41.0-53.0); Hemoglobin 10.8 g/dL (13.5-17.5); Lymphocytes % (auto) 9.4 % (10.0-50.0); Mean Corpuscular Hemoglobin 26.6 pg (28.0-32.0); Mean Corpuscular Hgb Conc. 33.1 g/dL (32.0-36.0); Mean Corpuscular Volume 80.4 fL (80.0-100.0); Monocytes % (auto) 8.8 % (0.0-12.0); Neutrophils # (auto) 6.3 10 ^3/uL (1.6-8.6); Platelet Count (auto) 503 10^3/uL (140-450); Red Blood Cells 4.04 10^6/uL (4.5-5.90); Red Cell Distribution Width 15.6 % (11.8-14.3)
[2019-12-27 05:59] LABS: INR 1.16 (0.9-1.15); Partial Thromboplastin Time 29.2 sec (23.64-32.05)
[2019-12-27 06:10] LABS: Potassium 3.6 mmol/L (3.5-5.1)
[2019-12-27 06:15] LABS: BUN/Creatinine Ratio 22.4; Calcium 8.2 mg/dL (8.5-10.1)
[2019-12-27] MEDS: PIPERACILLIN-TAZOB 3.375GM 100 ML IV SCH ×3 (06:18→21:18)
[2019-12-27] MEDS: IPRATROPIUM BROM 0.5 MG/2.5ML INH SOL NEB SCH ×3 (06:44→19:11)
[2019-12-27] MEDS: ALBUTEROL SULF 2.5 MG/0.5ML(0.5%) NEB SOLN NEB SCH ×3 (06:44→19:11)
[2019-12-27] MEDS: ACCU-CHEK COMFORT CURVE STRIP VI SCH ×4 (06:45→21:44)
[2019-12-27] MEDS: InsuLIN REG 1unit/0.01ml Soln (100units/ml) SC SCH ×4 (06:53→21:44)
[2019-12-27 09:00] VITALS: BP 102/52
[2019-12-27] MEDS: FUROSEMIDE 40 MG TAB PO SCH (10:00)
[2019-12-27] MEDS: POTASSIUM CHL 20 Meq TABLET PO SCH (11:13)
[2019-12-27] MEDS: FAMOTIDINE 20 MG TAB PO SCH (11:15)
[2019-12-27] MEDS: ASPirin-EC 81 mg tab PO SCH (11:15)
[2019-12-27 13:00] VITALS: BP 107/50
[2019-12-27 16:52] VITALS: BP 96/52
--- NOTE | 2019-12-27 19:15 | NUR ---
Opening Shift Note Assumed care of patient. Pt is awake and alert. Pt is comfortably resting in bed. No S/S of respiratory distress is noted. Patient does not report SOB, nausea,vomiting or pain. Pt is instructed on using IS and IS at bedside. Pt is on 2LNC saturating at 94%. Bed is in lowest position, bed alarm turned on and call light is within reach. POC discussed with the pt. Pt is instructed to call for assistance as needed. Will continue to monitor for changes Q1hr and PRN.
[2019-12-27] MEDS: ACETAMINOPHEN 500 MG TAB PO PRN (21:17)
[2019-12-27] MEDS: ATORVASTATIN 20 MG TAB PO SCH (21:18)
[2019-12-27 22:18] VITALS: BP 98/55
--- NOTE | 2019-12-28 | NUR ---
REMINDED PATIENT ON [id number] STATUS. PATIENT VERBALIZED UNDERSTADING.
[2019-12-28 04:52] LABS: Basophils # (auto) 0 10 ^3/uL (0-0.2); Basophils % (auto) 0.7 % (0.0-2.0); Eosinophils # (auto) 0.1 10 ^3/uL (0-0.8); Eosinophils % (auto) 2.4 % (0.0-7.0); Hematocrit 34.7 % (41.0-53.0); Hemoglobin 11.3 g/dL (13.5-17.5); Lymphocytes # (auto) 0.9 10 ^3/uL (0.4-5.4); Lymphocytes % (auto) 15.4 % (10.0-50.0); Mean Corpuscular Hemoglobin 26.2 pg (28.0-32.0); Mean Corpuscular Hgb Conc. 32.4 g/dL (32.0-36.0); Mean Corpuscular Volume 80.7 fL (80.0-100.0); Monocytes # (auto) 0.7 10 ^3/uL (0-1.3); Monocytes % (auto) 11.1 % (0.0-12.0); Neutrophils # (auto) 4.3 10 ^3/uL (1.6-8.6); Neutrophils % (auto) 70.4 % (37.0-80.0); Platelet Count (auto) 514 10^3/uL (140-450); Red Blood Cells 4.31 10^6/uL (4.5-5.90); Red Cell Distribution Width 15.9 % (11.8-14.3); White Blood Cell 6.2 10^3/uL (4.4-10.8)
[2019-12-28 05:10] LABS: BUN/Creatinine Ratio 14.5; Calcium 8.6 mg/dL (8.5-10.1); Potassium 4.2 mmol/L (3.5-5.1)
[2019-12-28 05:30] VITALS: BP 105/52
[2019-12-28] MEDS: VANCOMYCIN 1GM/250ML 250 ML IV SCH (05:39)
[2019-12-28] MEDS: PIPERACILLIN-TAZOB 3.375GM 100 ML IV SCH ×3 (06:36→22:04)
[2019-12-28] MEDS: ACCU-CHEK COMFORT CURVE STRIP VI SCH ×4 (06:36→22:06)
[2019-12-28] MEDS: InsuLIN REG 1unit/0.01ml Soln (100units/ml) SC SCH ×4 (06:37→22:00)
[2019-12-28] MEDS: IPRATROPIUM BROM 0.5 MG/2.5ML INH SOL NEB SCH ×3 (07:06→18:39)
[2019-12-28] MEDS: ALBUTEROL SULF 2.5 MG/0.5ML(0.5%) NEB SOLN NEB SCH ×3 (07:06→18:39)
--- NOTE | 2019-12-28 07:30 | NUR ---
Opening shift note Assumed care of patient. Patient resting with eyes closed, respirations even and non-labored with no s/s of distress. Will discuss POC with patient upon waking. NC on at 2L. Bed lowered/locked with 2 side rails up. Call light within reach. Will continue to monitor.
[2019-12-28 09:00] VITALS: BP 98/52
[2019-12-28] MEDS: FAMOTIDINE 20 MG TAB PO SCH (10:07)
[2019-12-28] MEDS: ASPirin-EC 81 mg tab PO SCH (10:08)
[2019-12-28] MEDS: POTASSIUM CHL 20 Meq TABLET PO SCH (10:08)
[2019-12-28] MEDS: FUROSEMIDE 40 MG TAB PO SCH (10:09)
--- NOTE | 2019-12-28 12:13 | NUR ---
Patient to laborer wharf
[2019-12-28] MEDS ORDERED: IOHEXOL 350 MG/ML 100ML IJ ONE (12:31)
[2019-12-28] MEDS ORDERED: LIDOCAINE 2%HCL (LOCAL ANESTH.) INJ 20ML MDV ONE (12:31)
[2019-12-28] MEDS ORDERED: SODIUM CHL 0.9% 50 ML ONE (12:58)
[2019-12-28] MEDS ORDERED: ANGIOMAX 250 MG VIAL IV ONE (12:58)
[2019-12-28] MEDS ORDERED: VANCOMYCIN 750mg/250ml 250 ML IV SCH (13:00)
--- NOTE | 2019-12-28 13:12 | NUR ---
DR RIOS ROUNDING PATIENT OFF UNIT TO DIAMOND POWDER MIXER NO NEW ORDERS RECEIVED
[2019-12-28] MEDS ORDERED: fentaNYL CITRATE 100 MCG/2 ML VL ONE (13:18)
[2019-12-28] MEDS ORDERED: MIDAZOLAM HCL 1MG/1ML-2 ML VIAL ONE (13:18)
--- NOTE | 2019-12-28 13:27 | NUR ---
DR DIAS ROUNDING PATIENT OFF UNIT TO ASSOCIATE PROFESSOR OF SOCIOLOGY NO NEW ORDERS RECEIVED
--- NOTE | 2019-12-28 13:42 | NUR ---
Nutrition Followup Notes Pt wt is 71 kg today Pt was awake with no relatives at bedside when rounded this morning. Pt appetite is good aeb ave 70% x5 PO intake per RN doc. Pt with no distress or complaints. Will continue to monitor and followup prn Est energy needs: 6094-1174 kcals (23-25 kcal/kgBW) Est protein needs: 73-80 gms/day (1.0-1.1 gm/kgBW) Will continue to monitor and reassess prn. LABS: GLUC 112 H, CR 0.62 L, ALB 1.6 L GI: Last BM noted on 12/25/19 per RN doc BS: 18 mod risk. Please refer to wound assessment report for full details PES: Problem Altered nutrition related lab values r/t current medical condition Comments 1) Continue to closely monitor pt PO intake to meet a goal of at least 75% of meals eaten 2) Continue current plan of care
[2019-12-28] MEDS ORDERED: TICAGRELOR 90 MG TAB ONE (13:50)
[2019-12-28] MEDS ORDERED: ASPirin 325 MG TAB ONE (13:50)
--- NOTE | 2019-12-28 15:24 | NUR ---
PATIENT BACK IN ROOM S/P C WITH DR KLEIN. VS STABLE ACCESS TO RIGHT GROIN IS DRY AND INTACT DENIES PAIN AT THIS TIME. PATIENT TO REMAIN IN FLAT POSITION UNTIL 1600. PATIENT AWARE, AND VERBALIZES UNDERSTANDING. WILL CLOSELY MONITOR
[2019-12-28] MEDS: VANCOMYCIN 750mg/250ml 250 ML IV SCH (16:05)
--- NOTE | 2019-12-28 16:23 | NUR ---
Patient refused PT. SHARON Inman was notified. Addendum: 12/28/19 at 1623 by LAURE JEFF PTT Amended: Links added.
[2019-12-28 17:00] VITALS: BP 96/64
--- NOTE | 2019-12-28 19:10 | NUR ---
Opening Shift Note Received report from nilson Inman RN. Assumed care of patient, awake and alert, resting in bed. No S/S of distress/SOB and denies pain. Instructed on POC and to call for assist PRN, will continue to monitor for changes Q1hr and PRN. Bed placed in lowest position, bed alarm turned on and call light within reach.
[2019-12-28 22:00] VITALS: BP 87/48
[2019-12-28] MEDS ORDERED: TICAGRELOR 90 MG TAB PO SCH (22:00)
[2019-12-28] MEDS: ACETAMINOPHEN 500 MG TAB PO PRN (22:05)
[2019-12-28] MEDS: ATORVASTATIN 20 MG TAB PO SCH (22:05)
[2019-12-28] MEDS: TICAGRELOR 60 MG TAB PO SCH (22:05)
[2019-12-29] MEDS: VANCOMYCIN 750mg/250ml 250 ML IV SCH ×3 (00:17→20:06)
[2019-12-29 05:00] VITALS: BP 98/57
[2019-12-29] MEDS: PIPERACILLIN-TAZOB 3.375GM 100 ML IV SCH ×3 (05:56→22:23)
[2019-12-29] MEDS: ALBUTEROL SULF 2.5 MG/0.5ML(0.5%) NEB SOLN NEB SCH ×3 (06:25→18:33)
[2019-12-29] MEDS: IPRATROPIUM BROM 0.5 MG/2.5ML INH SOL NEB SCH ×3 (06:25→18:32)
[2019-12-29] MEDS: InsuLIN REG 1unit/0.01ml Soln (100units/ml) SC SCH ×4 (06:48→22:00)
[2019-12-29] MEDS: ACCU-CHEK COMFORT CURVE STRIP VI SCH ×4 (06:49→22:00)
[2019-12-29 08:00] VITALS: BP 96/58
[2019-12-29] MEDS: POTASSIUM CHL 20 Meq TABLET PO SCH (09:56)
[2019-12-29] MEDS: TICAGRELOR 60 MG TAB PO SCH ×2 (09:56→22:24)
[2019-12-29] MEDS: ASPirin-EC 81 mg tab PO SCH (09:56)
[2019-12-29] MEDS: FUROSEMIDE 40 MG TAB PO SCH (09:57)
[2019-12-29] MEDS: FAMOTIDINE 20 MG TAB PO SCH (09:57)
--- NOTE | 2019-12-29 11:34 | NUR ---
Pt refused Physical Therapy this morning. Signed: 12/29/19 at 1136 by VERA SERNA PTT <Co-Signature Required> Co-Signed: 12/29/19 at 6 by Bradley Erickson PT Addendum: 12/29/19 at 1136 by VERA SERNA PTT Amended: Links added.
[2019-12-29 12:00] VITALS: BP 84/52
[2019-12-29 12:50] VITALS: BP 96/56
--- NOTE | 2019-12-29 13:10 | NUR ---
DR KLEIN ON UNIT
--- NOTE | 2019-12-29 13:18 | NUR ---
DR RIOS BEDSIDE WITH PATIENT
[2019-12-29 16:57] VITALS: BP 92/54
--- NOTE | 2019-12-29 17:50 | NUR ---
DR DIAS BEDSIDE WITH PATIENT
[2019-12-29 22:00] VITALS: BP 92/56
[2019-12-29] MEDS: ATORVASTATIN 20 MG TAB PO SCH (22:23)
[2019-12-30] MEDS: ACETAMINOPHEN 500 MG TAB PO PRN (01:40)
[2019-12-30 05:00] VITALS: BP 89/55
[2019-12-30] MEDS: VANCOMYCIN 750mg/250ml 250 ML IV SCH ×2 (05:33→16:24)
[2019-12-30] MEDS: PIPERACILLIN-TAZOB 3.375GM 100 ML IV SCH ×3 (05:33→21:49)
[2019-12-30 05:49] LABS: Basophils # (auto) 0.1 10 ^3/uL (0-0.2); Lymphocytes # (auto) 0.7 10 ^3/uL (0.4-5.4); Monocytes # (auto) 0.5 10 ^3/uL (0-1.3); Neutrophils # (auto) 5.9 10 ^3/uL (1.6-8.6); Red Cell Distribution Width 15.8 % (11.8-14.3)
[2019-12-30 05:51] LABS: Basophils % (auto) 1.3 % (0.0-2.0); Eosinophils # (auto) 0.1 10 ^3/uL (0-0.8); Hematocrit 33.1 % (41.0-53.0); Hemoglobin 10.9 g/dL (13.5-17.5); Lymphocytes % (auto) 9.4 % (10.0-50.0); Mean Corpuscular Hemoglobin 26.4 pg (28.0-32.0); Mean Corpuscular Hgb Conc. 33.1 g/dL (32.0-36.0); Mean Corpuscular Volume 79.9 fL (80.0-100.0); Neutrophils % (auto) 80.3 % (37.0-80.0); Nucleated Red Blood Cells % 0.1 %; Platelet Count (auto) 499 10^3/uL (140-450); Red Blood Cells 4.14 10^6/uL (4.5-5.90); White Blood Cell 7.4 10^3/uL (4.4-10.8)
[2019-12-30 05:57] LABS: Calcium 8.6 mg/dL (8.5-10.1); Potassium 3.6 mmol/L (3.5-5.1)
[2019-12-30] MEDS: ALBUTEROL SULF 2.5 MG/0.5ML(0.5%) NEB SOLN NEB SCH ×3 (06:39→18:45)
[2019-12-30] MEDS: IPRATROPIUM BROM 0.5 MG/2.5ML INH SOL NEB SCH ×3 (06:39→18:44)
[2019-12-30] MEDS: ACCU-CHEK COMFORT CURVE STRIP VI SCH ×4 (07:08→23:47)
[2019-12-30] MEDS: InsuLIN REG 1unit/0.01ml Soln (100units/ml) SC SCH ×4 (07:09→23:50)
[2019-12-30 08:00] VITALS: BP 87/47
[2019-12-30] MEDS: FUROSEMIDE 40 MG TAB PO SCH (10:00)
[2019-12-30] MEDS: TICAGRELOR 60 MG TAB PO SCH ×2 (10:31→21:49)
[2019-12-30] MEDS: FAMOTIDINE 20 MG TAB PO SCH (10:32)
[2019-12-30] MEDS: ASPirin-EC 81 mg tab PO SCH (10:32)
[2019-12-30] MEDS: POTASSIUM CHL 20 Meq TABLET PO SCH (10:32)
--- NOTE | 2019-12-30 11:08 | NUR ---
DR MCKINLEY BEDSIDE WITH PATIENT DISCUSSING PLAN OF CARE.
[2019-12-30 12:00] VITALS: BP 90/53
[2019-12-30 16:58] VITALS: BP 98/55
--- NOTE | 2019-12-30 18:44 | NUR ---
Respiratory note: AT BEDSIDE FOR MED NEB TX. PT TOLERATING TX WELL VIA MASK.
[2019-12-30 19:14] VITALS: BP 98/55
--- NOTE | 2019-12-30 19:15 | NUR ---
Opening Shift Note Received report from SHARON Way and assumed care of patient, awake and alert. No S/S of distress/SOB or pain. Instructed patient to call for assist if needed and patient verbalized understanding. will continue to monitor .
[2019-12-30] MEDS: ATORVASTATIN 20 MG TAB PO SCH (21:49)
[2019-12-30 22:00] VITALS: BP 93/51
--- NOTE | 2019-12-31 00:28 | NUR ---
Constipation: No BM since 12/23.Inform and new orders received from Dr Balderas to relieve constipation.Continue care.
[2019-12-31] MEDS ORDERED: LACTULOSE 20Gm/30ML SOLN PO ONE (00:30)
[2019-12-31] MEDS: VANCOMYCIN 750mg/250ml 250 ML IV SCH ×3 (02:58→22:13)
[2019-12-31 05:00] VITALS: BP 99/64
[2019-12-31] MEDS: PIPERACILLIN-TAZOB 3.375GM 100 ML IV SCH ×3 (05:19→22:13)
[2019-12-31] MEDS: InsuLIN REG 1unit/0.01ml Soln (100units/ml) SC SCH ×4 (06:42→22:00)
[2019-12-31] MEDS: ACCU-CHEK COMFORT CURVE STRIP VI SCH ×4 (06:43→22:15)
[2019-12-31] MEDS: IPRATROPIUM BROM 0.5 MG/2.5ML INH SOL NEB SCH ×3 (07:09→19:03)
[2019-12-31] MEDS: ALBUTEROL SULF 2.5 MG/0.5ML(0.5%) NEB SOLN NEB SCH ×3 (07:09→19:03)
--- NOTE | 2019-12-31 07:15 | NUR ---
OPENING SHIFT NOTE ASSUMED CARE OF PATIENT FROM CRAYON PAINTER RN KRUPA. PATIENT IS AWAKE, ALERT, AND ORIENTED X4. PATIENT HAS NO S/S OF DISTRESS/SOB OR PAIN. INSTRUCTED PATIENT ON POC, PATIENT VERBALIZED UNDERSTANDING. BED IS IN LOWEST POSITION WITH SIDE RAILS RAISED X2, BED WHEELS LOCKED, BED SIDE COMMODE, AND CALL LIGHT ARE WITHIN REACH. WILL CONTINUE TO MONITOR.
[2019-12-31 08:00] VITALS: BP 89/55
[2019-12-31] MEDS: TICAGRELOR 60 MG TAB PO SCH ×2 (10:26→22:15)
[2019-12-31] MEDS: DOCUSATE SOD 100 MG CAP PO SCH ×2 (10:28→22:14)
[2019-12-31] MEDS: ASPirin-EC 81 mg tab PO SCH (10:29)
[2019-12-31] MEDS: FUROSEMIDE 40 MG TAB PO SCH (10:29)
[2019-12-31] MEDS: POTASSIUM CHL 20 Meq TABLET PO SCH (10:30)
[2019-12-31] MEDS: FAMOTIDINE 20 MG TAB PO SCH (10:31)
[2019-12-31 12:00] VITALS: BP 85/52
--- NOTE | 2019-12-31 15:19 | NUR ---
PT PLACED ON ROOM AIR TO EVALUATE ROOM AIR SPO2. SPO2 95%. WILL CONTINUE TO KEEP O2 OFF AND EVALUATE.
[2019-12-31 17:00] VITALS: BP 98/51
--- NOTE | 2019-12-31 19:15 | NUR ---
CLOSING SHIFT NOTE ENDORSED CARE TO SAND SCREENER OPERATOR RN CHUCHO. PATIENT HAS NO S/S OF DISTRESS/SOB OR PAIN AT THIS TIME.
--- NOTE | 2019-12-31 19:20 | NUR ---
Opening Shift Note Received report from Georgia HERRERA. Assumed care of patient, awake and alert. No S/S of distress/SOB or pain. Instructed on POC and to call for assist PRN. Fall precaution measures in place, will continue to monitor for changes Q1hr and PRN.
[2019-12-31 22:00] VITALS: BP 86/51
[2019-12-31] MEDS: ATORVASTATIN 20 MG TAB PO SCH (22:14)
[2019-12-31] MEDS: SENNA 8.6 MG TAB PO SCH (22:15)
[2020-01-01 05:00] VITALS: BP 87/52
[2020-01-01] MEDS: PIPERACILLIN-TAZOB 3.375GM 100 ML IV SCH ×3 (05:55→21:50)
[2020-01-01] MEDS: ACCU-CHEK COMFORT CURVE STRIP VI SCH ×4 (06:52→21:53)
[2020-01-01] MEDS: InsuLIN REG 1unit/0.01ml Soln (100units/ml) SC SCH ×4 (06:53→21:58)
[2020-01-01] MEDS: ALBUTEROL SULF 2.5 MG/0.5ML(0.5%) NEB SOLN NEB SCH ×3 (06:55→18:50)
[2020-01-01] MEDS: IPRATROPIUM BROM 0.5 MG/2.5ML INH SOL NEB SCH ×3 (06:55→18:50)
[2020-01-01 08:00] VITALS: BP 93/57
[2020-01-01] MEDS: VANCOMYCIN 750mg/250ml 250 ML IV SCH ×2 (08:47→17:58)
[2020-01-01] MEDS: FUROSEMIDE 40 MG TAB PO SCH (10:00)
[2020-01-01] MEDS: DOCUSATE SOD 100 MG CAP PO SCH ×2 (10:22→21:51)
[2020-01-01] MEDS: FAMOTIDINE 20 MG TAB PO SCH (10:22)
[2020-01-01] MEDS: POTASSIUM CHL 20 Meq TABLET PO SCH (10:22)
[2020-01-01] MEDS: ASPirin-EC 81 mg tab PO SCH (10:22)
[2020-01-01] MEDS: TICAGRELOR 60 MG TAB PO SCH ×2 (10:23→22:00)
[2020-01-01 12:00] VITALS: BP 97/59
[2020-01-01 16:52] VITALS: BP 82/39
[2020-01-01] MEDS: ATORVASTATIN 20 MG TAB PO SCH (21:51)
[2020-01-01] MEDS: SENNA 8.6 MG TAB PO SCH (21:52)
[2020-01-01 22:00] VITALS: BP 84/47
--- NOTE | 2020-01-01 23:05 | NUR ---
MET PATIENT AWAKE ALERT AND ORIENTED. BREATHING WAS EVEN AND UNLABORED. DENIED PAIN. SYSTOLIC BP RUNS BELOW 100MMHG
[2020-01-02] MEDS: VANCOMYCIN 750mg/250ml 250 ML IV SCH ×2 (03:49→13:50)
[2020-01-02 05:00] VITALS: BP 96/52
[2020-01-02] MEDS: PIPERACILLIN-TAZOB 3.375GM 100 ML IV SCH ×3 (05:37→22:00)
[2020-01-02] MEDS: ACCU-CHEK COMFORT CURVE STRIP VI SCH ×4 (06:21→22:00)
[2020-01-02] MEDS: InsuLIN REG 1unit/0.01ml Soln (100units/ml) SC SCH ×4 (06:29→22:00)
[2020-01-02] MEDS: IPRATROPIUM BROM 0.5 MG/2.5ML INH SOL NEB SCH ×3 (06:56→18:52)
[2020-01-02] MEDS: ALBUTEROL SULF 2.5 MG/0.5ML(0.5%) NEB SOLN NEB SCH ×3 (06:56→18:52)
--- NOTE | 2020-01-02 07:30 | NUR ---
Opening Shift Note RECEIVED REPORT FROM NOC RN. Assumed care of patient, awake and alert. No S/S of distress/SOB or pain. BED IN LOWEST, LOCKED POSITION WITH SIDERAILS UP x2 AND CALL LIGHT WITHIN REACH. Instructed on POC and to call for assist PRN, will continue to monitor for changes Q1hr and PRN.
[2020-01-02 09:00] VITALS: BP 91/48
[2020-01-02] MEDS: DOCUSATE SOD 100 MG CAP PO SCH ×2 (09:56→22:00)
[2020-01-02] MEDS: FAMOTIDINE 20 MG TAB PO SCH (09:57)
[2020-01-02] MEDS: ASPirin-EC 81 mg tab PO SCH (09:57)
[2020-01-02] MEDS: POTASSIUM CHL 20 Meq TABLET PO SCH (09:57)
[2020-01-02] MEDS: FUROSEMIDE 40 MG TAB PO SCH (10:00)
[2020-01-02] MEDS: TICAGRELOR 60 MG TAB PO SCH ×2 (10:20→22:00)
[2020-01-02 13:00] VITALS: BP 94/51
--- NOTE | 2020-01-02 13:00 | NUR ---
REPORT GIVEN TO SHARON JOHNSON.
--- NOTE | 2020-01-02 13:15 | NUR ---
Assumed care of patient Received report from SHARON Garcia. Patient resting in bed with eyes closed. No s/s of distress/SOB noted at this time. Bed is low, locked with 2x rails up. Call light within reach. Will continue to monitor Q1hr and PRN.
--- NOTE | 2020-01-02 14:29 | NUR ---
Nutrition Followup Notes Pt wt is 70 kg today Pt was awake with no relatives at bedside when rounded this morning. Pt appetite is good aeb 75% PO intake per RN doc. Pt with no distress or complaints, feeling well. Will continue to monitor and followup prn Est energy needs: 3195-9501 kcals (23-25 kcal/kgBW) Est protein needs: 73-80 gms/day (1.0-1.1 gm/kgBW) Will continue to monitor and reassess prn. LABS: GLUC 140 H, Alb 2.6 L GI: Last BM noted on 12/31/19 per RN doc BS: 20 low risk. Please refer to wound assessment report for full details PES: Problem Altered nutrition related lab values r/t current medical condition Comments 1) Continue to closely monitor pt PO intake to meet a goal of at least 75% of meals eaten 2) Continue current plan of care
--- NOTE | 2020-01-02 14:44 | NUR ---
Daughter called for update Password verified. Updated daughter on POC.
[2020-01-02 16:46] VITALS: BP 96/50
--- NOTE | 2020-01-02 16:58 | NUR ---
Bronchoscopy . Stuart rounding and wants to schedule Bronchoscopy and bronchial washing for tomorrow 01/03/20 @ 11am. Spoke with Shira (house sup) and let her know.
[2020-01-02 18:00] VITALS: BP 96/50
[2020-01-02 22:00] VITALS: BP 90/50
[2020-01-02] MEDS: SENNA 8.6 MG TAB PO SCH (22:00)
[2020-01-02] MEDS: ATORVASTATIN 20 MG TAB PO SCH (22:00)
[2020-01-03 03:59] LABS: BUN/Creatinine Ratio 12.9; Calcium 8.5 mg/dL (8.5-10.1); Potassium 3.9 mmol/L (3.5-5.1)
[2020-01-03 04:02] LABS: Basophils # (auto) 0.1 10 ^3/uL (0-0.2); Eosinophils # (auto) 0.2 10 ^3/uL (0-0.8); Hemoglobin 11.9 g/dL (13.5-17.5); Mean Corpuscular Hemoglobin 25.7 pg (28.0-32.0); Monocytes # (auto) 0.7 10 ^3/uL (0-1.3); Neutrophils # (auto) 3.6 10 ^3/uL (1.6-8.6); Neutrophils % (auto) 64.5 % (37.0-80.0); Red Blood Cells 4.63 10^6/uL (4.5-5.90)
[2020-01-03 04:04] LABS: Basophils % (auto) 1.6 % (0.0-2.0); Hematocrit 37.3 % (41.0-53.0); Lymphocytes % (auto) 17.8 % (10.0-50.0); Mean Corpuscular Hgb Conc. 31.9 g/dL (32.0-36.0); Mean Corpuscular Volume 80.6 fL (80.0-100.0); Monocytes % (auto) 12.1 % (0.0-12.0); Platelet Count (auto) 413 10^3/uL (140-450); Red Cell Distribution Width 16.3 % (11.8-14.3); White Blood Cell 5.5 10^3/uL (4.4-10.8)
[2020-01-03 05:36] VITALS: BP 98/60
[2020-01-03] MEDS: IPRATROPIUM BROM 0.5 MG/2.5ML INH SOL NEB SCH ×3 (05:58→18:48)
[2020-01-03] MEDS: ALBUTEROL SULF 2.5 MG/0.5ML(0.5%) NEB SOLN NEB SCH ×3 (05:58→18:48)
[2020-01-03] MEDS: PIPERACILLIN-TAZOB 3.375GM 100 ML IV SCH ×2 (06:00→14:08)
--- NOTE | 2020-01-03 06:50 | NUR ---
IV removal Patient accidently removed IV, catheter fully intact. Pressure dressing applied to site. Patient tolerated well.
[2020-01-03] MEDS: InsuLIN REG 1unit/0.01ml Soln (100units/ml) SC SCH ×4 (07:00→21:26)
[2020-01-03] MEDS: ACCU-CHEK COMFORT CURVE STRIP VI SCH ×4 (07:04→21:26)
--- NOTE | 2020-01-03 07:45 | NUR ---
IV insertion IV access obtained, via clean sterile technique by inserting 22 gauge catheter at LFA after 2 attempt(s). IV secured properly. No trauma to site. Patient tolerated well.
--- NOTE | 2020-01-03 07:50 | NUR ---
Opening Shift Note Assumed care of patient, awake and alert. No S/S of distress/SOB or pain. Instructed on POC and to call for assist PRN, will continue to monitor for changes Q1hr and PRN. NPO status maintained for procedure.
[2020-01-03 08:52] VITALS: BP 98/50
[2020-01-03] MEDS: FUROSEMIDE 40 MG TAB PO SCH (10:00)
[2020-01-03] MEDS: TICAGRELOR 60 MG TAB PO SCH ×2 (10:00→21:24)
[2020-01-03] MEDS ORDERED: POTASSIUM CHL 20 Meq TABLET PO SCH (10:00)
[2020-01-03] MEDS: ASPirin-EC 81 mg tab PO SCH (10:00)
[2020-01-03] MEDS: FAMOTIDINE 20 MG TAB PO SCH (10:20)
[2020-01-03] MEDS: DOCUSATE SOD 100 MG CAP PO SCH ×2 (10:20→21:24)
[2020-01-03] MEDS: VANCOMYCIN 750mg/250ml 250 ML IV SCH ×2 (10:20)
[2020-01-03] MEDS: POTASSIUM CHL 10 Meq TABLET PO SCH (10:21)
[2020-01-03] MEDS ORDERED: NALOXONE HCL 0.4 MG/ML VIAL ONE (10:29)
[2020-01-03] MEDS ORDERED: LIDOCAINE 2%HCL (LOCAL ANESTH.) INJ 20ML MDV ONE (10:29)
[2020-01-03] MEDS ORDERED: FLUMAZENIL 0.1 MG/ML INJ 10ML MDV IV ONE (10:29)
[2020-01-03] MEDS ORDERED: BENZOCAINE (DENTAL) 20 % SPRAY 60ML MT ONE (10:29)
[2020-01-03] MEDS ORDERED: SODIUM CHLORIDE LOCK 10 ML ONE (10:30)
[2020-01-03] MEDS ORDERED: diphenhdrAMINE HCL 50 MG/1 ML VL ONE (10:31)
[2020-01-03] MEDS ORDERED: LIDOCAINE HCL 2% TOP JELLY 5ML TOP ONE (10:31)
[2020-01-03] MEDS ORDERED: MIDAZOLAM HCL 5 MG/ML-1ML VIAL ONE (10:31)
[2020-01-03] MEDS ORDERED: fentaNYL CITRATE 100 MCG/2 ML VL ONE (10:31)
[2020-01-03] MEDS ORDERED: GLYCOPYRROLATE 0.2 MG/ML 1ML VIAL ONE (10:32)
[2020-01-03] MEDS ORDERED: EPINEPHrine HCL 1 MG/1 ML AMP ONE (10:32)
--- NOTE | 2020-01-03 10:45 | NUR ---
Off Unit Patient in pre-op for bronchoscopy.
[2020-01-03 13:00] VITALS: BP 106/61
--- NOTE | 2020-01-03 13:05 | NUR ---
On Unit Patient returned to unit from PACU awake and alert. Patient's in bed and bed alarm on for safety, call light placed within reach and patient encouraged to call for assistance. Patient is aware he is still NPO until 1345.
--- NOTE | 2020-01-03 13:57 | NUR ---
Patient refused PT. SHARON Ramos was notified. Addendum: 01/03/20 at 1358 by LAUER JEFF PTT Amended: Links added.
--- NOTE | 2020-01-03 16:18 | NUR ---
Social Service consult regarding resuming Home Health. Pt was previously on service with Pati Mckeon and will be resuming with this service upon discharge. Pati Mckeon contacted. Information received and services to resume upon discharge. Will Notify covering nurse and FELISHA II of the above.
[2020-01-03 16:23] VITALS: BP 100/59
--- NOTE | 2020-01-03 19:45 | NUR ---
assumed care, pt. awake, no c/o pain, not in distress.
[2020-01-03] MEDS: ATORVASTATIN 20 MG TAB PO SCH (21:24)
[2020-01-03] MEDS: SENNA 8.6 MG TAB PO SCH (21:25)
[2020-01-03] MEDS: DOXYCYCLINE 100 MG TAB/CAP PO SCH (21:25)
[2020-01-03 22:11] VITALS: BP 101/60
[2020-01-04 04:54] VITALS: BP 91/44
[2020-01-04] MEDS: InsuLIN REG 1unit/0.01ml Soln (100units/ml) SC SCH ×2 (06:11→12:29)
[2020-01-04] MEDS: ACCU-CHEK COMFORT CURVE STRIP VI SCH ×2 (06:12→12:10)
[2020-01-04] MEDS: IPRATROPIUM BROM 0.5 MG/2.5ML INH SOL NEB SCH ×2 (06:50→12:27)
[2020-01-04] MEDS: ALBUTEROL SULF 2.5 MG/0.5ML(0.5%) NEB SOLN NEB SCH ×2 (06:50→12:27)
--- NOTE | 2020-01-04 07:39 | NUR ---
Opening Shift Note Assumed care of patient, awake and alert. No S/S of distress/SOB or pain. Instructed on POC and to call for assist PRN, will continue to monitor for changes Q1hr and PRN. Patient for home today. Will follow-up with discharge instructions.
[2020-01-04 08:00] VITALS: BP 98/50
[2020-01-04] MEDS: FAMOTIDINE 20 MG TAB PO SCH (09:24)
[2020-01-04] MEDS: ASPirin-EC 81 mg tab PO SCH (09:24)
[2020-01-04] MEDS: DOXYCYCLINE 100 MG TAB/CAP PO SCH (09:25)
[2020-01-04] MEDS: DOCUSATE SOD 100 MG CAP PO SCH (09:25)
[2020-01-04] MEDS: POTASSIUM CHL 10 Meq TABLET PO SCH (09:25)
[2020-01-04] MEDS: FUROSEMIDE 40 MG TAB PO SCH (09:27)
[2020-01-04] MEDS: TICAGRELOR 60 MG TAB PO SCH (09:37)
--- NOTE | 2020-01-04 11:33 | NUR ---
Patient refused PT cause of getting DC'd today. SHARON Ramos was notified. Addendum: 01/04/20 at 1133 by LAURE JEFF PTT Amended: Links added.
[2020-01-04 12:00] VITALS: BP 90/51
--- NOTE | 2020-01-04 13:30 | NUR ---
Discharge instructions given as ordered. Encourage to follow up with PMD as instructed. All questions and concerns addressed. Patient verbalized understanding. Medication reconciliation form completed and copy given to patient. IV removed with catheter intact and pressure dressing applied. Telemetry unit returned to ICU. Patient taken to vehicle via wheelchair with all personal belongings, accompanied by staff and family member. No distress noted at time of departure.
== END 2020-01-04 13:30 | disposition home health service (06) | DRG 853 ==
LOC: ER 12:10 → EDBD 12:10 → TELE 12:11 → ICU WEST 12-18 02:10 → TELE-WESTW 12-18 21:17
PROVIDERS: ADMIT Nurse Practitioner Acute Care; ATTEND Internal Medicine
PROC: 027034Z Dilation of Coronary Artery, One Artery with Drug-eluting Intraluminal Device, Percutaneous Approach (ICD-10-PCS; principal; 2019-12-28)
PROC: B2151ZZ Fluoroscopy of Left Heart using Low Osmolar Contrast (ICD-10-PCS; 2019-12-28)
PROC: B2111ZZ Fluoroscopy of Multiple Coronary Arteries using Low Osmolar Contrast (ICD-10-PCS; 2019-12-28)
PROC: 4A033BC Measurement of Arterial Pressure, Coronary, Percutaneous Approach (ICD-10-PCS; 2019-12-28)
PROC: 02703ZZ Dilation of Coronary Artery, One Artery, Percutaneous Approach (ICD-10-PCS; 2019-12-28)
PROC: 0B9 Respiratory System, Drainage (ICD-10-PCS; 2020-01-03)
DX: A41.9 Sepsis, unspecified organism (principal); J18.9 Pneumonia, unspecified organism; J96.01 Acute respiratory failure with hypoxia; I21.4 Non-ST elevation (NSTEMI) myocardial infarction; I50.43 Acute on chronic combined systolic (congestive) and diastolic (congestive) heart failure; E87.2 Acidosis; E44.0 Moderate protein-calorie malnutrition; I48.91 Unspecified atrial fibrillation; E03.9 Hypothyroidism, unspecified; D64.9 Anemia, unspecified; I11.0 Hypertensive heart disease with heart failure; J84.10 Pulmonary fibrosis, unspecified; E87.6 Hypokalemia; E11.42 Type 2 diabetes mellitus with diabetic polyneuropathy; I25.10 Atherosclerotic heart disease of native coronary artery without angina pectoris; J43.9 Emphysema, unspecified; Z79.02 Long term (current) use of antithrombotics/antiplatelets; Z03.818 Encounter for observation for suspected exposure to other biological agents ruled out; Z82.5 Family history of asthma and other chronic lower respiratory diseases; Z85.819 Personal history of malignant neoplasm of unspecified site of lip, oral cavity, and pharynx; Z79.899 Other long term (current) drug therapy; Z87.891 Personal history of nicotine dependence; Z68.22 Body mass index [BMI] 22.0-22.9, adult
CPT/HCPCS: 31622; 36415; 36600; 70450; 71045; 71250; 80048; 80053; 80202; 81001; 82805; 82962; 83036; 83605; 83735; 83880; 84132; 84484; 85007; 85025; 85027; 85610; 85730; 86141; 87040; 87070; 87077; 87081; 87186; 87205; 87804; 87807; 87880; 92928; 93005; 93306; 93454; 93571; 94640; 96365; 96367; 97116; 97163; 97530; 99152; 99153; C1874; G0378; J0171; J1815; J1956; J2250; J2543

== ENCOUNTER → 2020-01-07 | Outpatient (CLI) | payer MEDICARE, BC ==
[~2020-01-07] MED LIST changes: +CLOP75TA28 PO; +FOLITAB22 PO; +GLYB2.5T8 PO; +LINA145C OR; +TAMS0.4C36 PO; +[UNRECOGNIZED DRUG - CODE] XX
== END | disposition home or self-care (01) ==
LOC: Rad HDHVI 11:05
PROVIDERS: ATTEND Internal Medicine Cardiovascular Disease
DX: I25.10 Atherosclerotic heart disease of native coronary artery without angina pectoris (principal); M48.10 Ankylosing hyperostosis [Forestier], site unspecified; K44.9 Diaphragmatic hernia without obstruction or gangrene
CPT/HCPCS: 71250

== ENCOUNTER → 2020-01-14 | Outpatient (CLI) | payer MEDICARE, BC | END | disposition home or self-care (01) | LOC: Rad HDHVI 15:49 | PROVIDERS: ATTEND Internal Medicine Cardiovascular Disease | DX: I34.0 Nonrheumatic mitral (valve) insufficiency (principal); I10 Essential (primary) hypertension; R00.2 Palpitations; R07.9 Chest pain, unspecified | CPT/HCPCS: 93306 ==

== ENCOUNTER → 2020-01-16 | Outpatient (CLI) | payer MEDICARE, BC ==
[2020-01-16 15:50] LABS: Basophils # (auto) 0.1 10 ^3/uL (0-0.2); Eosinophils # (auto) 0.1 10 ^3/uL (0-0.8); Hemoglobin 12.3 g/dL (13.5-17.5); Lymphocytes # (auto) 1.6 10 ^3/uL (0.4-5.4); Monocytes # (auto) 0.8 10 ^3/uL (0-1.3)
[2020-01-16 15:52] LABS: Basophils % (auto) 0.7 % (0.0-2.0); Eosinophils % (auto) 1.1 % (0.0-7.0); Hematocrit 37.8 % (41.0-53.0); Lymphocytes % (auto) 21.1 % (10.0-50.0); Mean Corpuscular Hemoglobin 26.6 pg (28.0-32.0); Mean Corpuscular Hgb Conc. 32.4 g/dL (32.0-36.0); Monocytes % (auto) 10.4 % (0.0-12.0); Neutrophils # (auto) 5.1 10 ^3/uL (1.6-8.6); Neutrophils % (auto) 66.7 % (37.0-80.0); Platelet Count (auto) 269 10^3/uL (140-450); Red Blood Cells 4.61 10^6/uL (4.5-5.90); Red Cell Distribution Width 17.4 % (11.8-14.3); White Blood Cell 7.7 10^3/uL (4.4-10.8)
[2020-01-16 15:57] LABS: Urine Blood Negative /uL (Negative); Urine Specific Gravity 1.023 (1.001-1.035)
[2020-01-16 16:02] LABS: BUN/Creatinine Ratio 18.5; Potassium 3.8 mmol/L (3.5-5.1)
== END | disposition home or self-care (01) ==
LOC: Rad HDHVI 10:57
PROVIDERS: ATTEND Internal Medicine Cardiovascular Disease
DX: I25.10 Atherosclerotic heart disease of native coronary artery without angina pectoris (principal); I50.9 Heart failure, unspecified; Z79.899 Other long term (current) drug therapy; K44.9 Diaphragmatic hernia without obstruction or gangrene
CPT/HCPCS: 36415; 71250; 80048; 81003; 83880; 85025

== ENCOUNTER → 2020-01-25 | Outpatient (CLI) | payer MEDICARE, BC ==
[~2020-01-25] VITALS: Ht 175.3 cm; Wt 68.0 kg
[~2020-01-25] MED LIST changes: +ADENOSINE 57 MG in GIVE UN-DILUTED 0 ML IV ONE
== END | disposition home or self-care (01) ==
LOC: Rad HDHVI 09:28
PROVIDERS: ATTEND Internal Medicine Cardiovascular Disease
DX: I25.10 Atherosclerotic heart disease of native coronary artery without angina pectoris (principal); I10 Essential (primary) hypertension; E11.9 Type 2 diabetes mellitus without complications; I25.2 Old myocardial infarction; E78.00 Pure hypercholesterolemia, unspecified; M19.90 Unspecified osteoarthritis, unspecified site; K57.90 Diverticulosis of intestine, part unspecified, without perforation or abscess without bleeding; Z95.1 Presence of aortocoronary bypass graft
CPT/HCPCS: 78452; 93005; 96374; 96375; A9500

== ENCOUNTER 2020-02-25 19:00 | Emergency (ER) | payer MEDICARE, BC ==
[~2020-02-25] VITALS: Ht 177.8 cm; Wt 68.0 kg
[~2020-02-25 19:00] MED LIST changes: -ADENOSINE 57 MG in GIVE UN-DILUTED 0 ML IV ONE
[2020-02-25] MEDS ORDERED: SODIUM CHLORIDE 0.9% 500 ML IV ONE (19:09)
[2020-02-25 20:18] LABS: Basophils # (auto) 0 10 ^3/uL (0-0.2); Basophils % (auto) 0.2 % (0.0-2.0); Eosinophils # (auto) 0 10 ^3/uL (0-0.8); Eosinophils % (auto) 0.1 % (0.0-7.0); Hematocrit 33.1 % (41.0-53.0); Hemoglobin 10.8 g/dL (13.5-17.5); Lymphocytes # (auto) 1.2 10 ^3/uL (0.4-5.4); Mean Corpuscular Hemoglobin 25.7 pg (28.0-32.0); Mean Corpuscular Hgb Conc. 32.5 g/dL (32.0-36.0); Mean Corpuscular Volume 79.1 fL (80.0-100.0); Monocytes # (auto) 0.2 10 ^3/uL (0-1.3); Monocytes % (auto) 4.3 % (0.0-12.0); Neutrophils # (auto) 4.3 10 ^3/uL (1.6-8.6); Neutrophils % (auto) 74.4 % (37.0-80.0); Platelet Count (auto) 292 10^3/uL (140-450); Red Blood Cells 4.19 10^6/uL (4.5-5.90); Red Cell Distribution Width 18.2 % (11.8-14.3); White Blood Cell 5.8 10^3/uL (4.4-10.8)
[2020-02-25 20:28] LABS: Urine Bacteria NONE SEEN /hpf (None Seen); Urine Blood Negative /uL (Negative); Urine Specific Gravity 1.002 (1.001-1.035)
[2020-02-25 20:31] LABS: Urine WBC None Seen /hpf (0 - 3)
[2020-02-25 20:36] LABS: Albumin 2.9 g/dL (3.4-5.0); Anion Gap 8 (5-15); Blood Urea Nitrogen 10 mg/dL (7-18); Calcium 8.1 mg/dL (8.5-10.1); Carbon Dioxide 22 mmol/L (21-32); Chloride 109 mmol/L (98-107); Glucose 141 mg/dL (74-106); Magnesium 2.1 mg/dL (1.6-2.6); Sodium 139 mmol/L (136-145)
[2020-02-25 20:38] LABS: Alanine Aminotransferase 17 U/L (16-61); Aspartate Aminotransferase 13 U/L (15-37); BUN/Creatinine Ratio 17.9; GFR African American 177 mL/min; GFR Non-African American 147 mL/min
[2020-02-25 20:43] LABS: Alkaline Phosphatase 41 U/L (45-117); Bilirubin, Total 0.3 mg/dL (0.2-1.0); Total Protein 6.8 g/dL (6.4-8.2)
[2020-02-25] MEDS ORDERED: SODIUM CHLORIDE 0.9% 1,000 ML IV ONE (21:15)
[2020-02-25 22:01] VITALS: BP 124/71
== END 2020-02-25 23:00 | disposition home or self-care (01) ==
LOC: ER 19:00 → EDUNIT# 19:00 → EDBD 19:00 → ER 23:00
DX: I95.9 Hypotension, unspecified (principal); R55 Syncope and collapse; E11.9 Type 2 diabetes mellitus without complications; E78.5 Hyperlipidemia, unspecified; E03.9 Hypothyroidism, unspecified
CPT/HCPCS: 36415; 70450; 71045; 80053; 81001; 83735; 84484; 85025; 93005; 96360; 96361; 99285; J7030; J7040

== ENCOUNTER → 2021-02-13 | Outpatient (CLI) | payer MEDICARE, BC ==
[2021-02-13 14:42] LABS: Urine Blood Negative /uL (Negative); Urine Specific Gravity 1.025 (1.001-1.035)
[2021-02-13 14:48] LABS: Albumin 3.2 g/dL (3.4-5.0); Basophils # (auto) 0 10 ^3/uL (0-0.2); Basophils % (auto) 0.5 % (0.0-2.0); Calcium 8.7 mg/dL (8.5-10.1); Eosinophils # (auto) 0.1 10 ^3/uL (0-0.8); Monocytes # (auto) 0.8 10 ^3/uL (0-1.3); Nucleated Red Blood Cells % 0.1 %; Potassium 4.1 mmol/L (3.5-5.1)
[2021-02-13 14:50] LABS: Eosinophils % (auto) 1.3 % (0.0-7.0); Hematocrit 35.5 % (41.0-53.0); Hemoglobin 11.5 g/dL (13.5-17.5); Lymphocytes # (auto) 2.4 10 ^3/uL (0.4-5.4); Lymphocytes % (auto) 33.4 % (10.0-50.0); Mean Corpuscular Hemoglobin 23.5 pg (28.0-32.0); Mean Corpuscular Hgb Conc. 32.4 g/dL (32.0-36.0); Mean Corpuscular Volume 72.5 fL (80.0-100.0); Monocytes % (auto) 10.9 % (0.0-12.0); Neutrophils # (auto) 3.9 10 ^3/uL (1.6-8.6); Neutrophils % (auto) 53.9 % (37.0-80.0); Platelet Count (auto) 354 10^3/uL (140-450); Red Cell Distribution Width 18.1 % (11.8-14.3); White Blood Cell 7.2 10^3/uL (4.4-10.8)
[2021-02-13 14:58] LABS: BUN/Creatinine Ratio 18.5; Bilirubin, Direct 0.1 mg/dL (0-0.2); Bilirubin, Total 0.4 mg/dL (0.2-1.0); Total Protein 7.4 g/dL (6.4-8.2)
== END | disposition home or self-care (01) ==
LOC: LAB 11:46
PROVIDERS: ATTEND Internal Medicine Cardiovascular Disease
DX: C61 Malignant neoplasm of prostate (principal); D51.3 Other dietary vitamin B12 deficiency anemia; D64.9 Anemia, unspecified; E11.9 Type 2 diabetes mellitus without complications; E55.9 Vitamin D deficiency, unspecified; I10 Essential (primary) hypertension; R00.2 Palpitations; R53.1 Weakness; R30.0 Dysuria
CPT/HCPCS: 36415; 80048; 80061; 80076; 81003; 82306; 83036; 84403; 84443; 85025

== ENCOUNTER → 2021-02-23 | Outpatient (CLI) | payer MEDICARE, BC | END | disposition home or self-care (01) | LOC: Rad HDHVI 10:08 | PROVIDERS: ATTEND Internal Medicine Cardiovascular Disease | DX: I65.23 Occlusion and stenosis of bilateral carotid arteries (principal); E78.00 Pure hypercholesterolemia, unspecified | CPT/HCPCS: 93880 ==

== ENCOUNTER → 2021-02-26 | Outpatient (CLI) | payer MEDICARE, BC | END | disposition home or self-care (01) | LOC: Rad HDHVI 10:16 | PROVIDERS: ATTEND Internal Medicine Cardiovascular Disease | DX: I08.3 Combined rheumatic disorders of mitral, aortic and tricuspid valves (principal); R00.2 Palpitations; I10 Essential (primary) hypertension | CPT/HCPCS: 93306 ==

== ENCOUNTER → 2021-04-15 | Outpatient (CLI) | payer MEDICARE, BC | END | disposition home or self-care (01) | LOC: LAB 10:24 | PROVIDERS: ATTEND Internal Medicine Cardiovascular Disease | DX: R94.4 Abnormal results of kidney function studies (principal) | CPT/HCPCS: 36415; 82565 ==

== ENCOUNTER → 2021-04-17 | Outpatient (CLI) | payer MEDICARE, BC ==
[~2021-04-17] MED LIST changes: +IOHEXOL 350 MG/ML 100ML IJ ONE
[2021-04-17 09:24] VITALS: BP 110/57
[2021-04-17 09:58] VITALS: BP 120/59
== END | disposition home or self-care (01) ==
LOC: Rad HDHVI 09:06
PROVIDERS: ATTEND Internal Medicine Cardiovascular Disease
DX: K11.0 Atrophy of salivary gland (principal); I65.23 Occlusion and stenosis of bilateral carotid arteries; J43.8 Other emphysema; Z85.9 Personal history of malignant neoplasm, unspecified
CPT/HCPCS: 70491; G0463; Q9967

== ENCOUNTER 2021-06-04 06:55 | Day surgery (SDC) | payer MEDICARE, BC ==
[~2021-06-04] VITALS: Ht 175.3 cm; Wt 74.8 kg
[~2021-06-04 06:55] MED LIST changes: -ASPI-231 PO; +ASPI1TAB20 PO; -CELE200C PO; +DOCU-94 PO; +FURO20TA3 PO; -IOHEXOL 350 MG/ML 100ML IJ ONE; +LEVO112T4 PO; -LEVO25TA6 PO; -LINA145C OR; +LUBI24CA6 PO; -OMEP20CA74 OR; +OMEP20CA74 PO; +PRED10TA PO; -RAMI2.5C33 PO; -[UNRECOGNIZED DRUG - CODE] XX
[2021-06-04] MEDS ORDERED: ANGIOMAX 250 MG VIAL IV ONE (08:09)
[2021-06-04] MEDS ORDERED: PHENYLEPHRINE HCL 10 MG/ML VL ONE (08:09)
[2021-06-04] MEDS ORDERED: GLYCOPYRROLATE 0.2 MG/ML 1ML VIAL ONE ×2 (08:09→10:18)
[2021-06-04] MEDS ORDERED: DOPamine 1600MCG/ML D5W 0 ML IV ONE (08:10)
[2021-06-04] MEDS ORDERED: LIDOCAINE 2%HCL (LOCAL ANESTH.) INJ 20ML MDV ONE (08:10)
[2021-06-04] MEDS ORDERED: SODIUM CHL 0.9% 50 ML ONE (08:10)
[2021-06-04] MEDS ORDERED: IOHEXOL 350 MG/ML 100ML IJ ONE (08:10)
[2021-06-04] MEDS ORDERED: ASPirin 81 mg TAB ONE (10:39)
[2021-06-04] MEDS ORDERED: CLOPIDOGREL BISULFATE 75 MG TAB ONE (10:39)
== END 2021-06-04 13:15 | disposition home or self-care (01) ==
LOC: CATH 06:55
PROVIDERS: ATTEND Internal Medicine Cardiovascular Disease
DX: I65.23 Occlusion and stenosis of bilateral carotid arteries (principal); F17.200 Nicotine dependence, unspecified, uncomplicated; I10 Essential (primary) hypertension; E78.5 Hyperlipidemia, unspecified; E03.9 Hypothyroidism, unspecified; M19.90 Unspecified osteoarthritis, unspecified site; Z86.73 Personal history of transient ischemic attack (TIA), and cerebral infarction without residual deficits; Z20.822 Contact with and (suspected) exposure to COVID-19; Z85.118 Personal history of other malignant neoplasm of bronchus and lung; Z79.899 Other long term (current) drug therapy; Z98.890 Other specified postprocedural states
CPT/HCPCS: 37215; C1725; C1760; C1769; C1876; C1887; C1894; J0583; J1644; J7030; Q9967; U0003; 99152; 99153

== ENCOUNTER → 2021-11-03 | Outpatient (CLI) | payer MEDICARE, BC ==
[2021-11-03 11:32] LABS: Urine Blood Negative /uL (Negative); Urine Specific Gravity 1.015 (1.001-1.035)
[2021-11-03 11:35] LABS: Basophils # (auto) 0 10 ^3/uL (0-0.2); Eosinophils # (auto) 0.1 10 ^3/uL (0-0.8); Lymphocytes # (auto) 2.5 10 ^3/uL (0.4-5.4); Nucleated Red Blood Cells % 0.1 %; White Blood Cell 8.1 10^3/uL (4.4-10.8)
[2021-11-03 11:36] LABS: Basophils % (auto) 0.6 % (0.0-2.0); Hematocrit 33.8 % (41.0-53.0); Hemoglobin 10.7 g/dL (13.5-17.5); Lymphocytes % (auto) 30.8 % (10.0-50.0); Mean Corpuscular Hemoglobin 22.9 pg (28.0-32.0); Mean Corpuscular Hgb Conc. 31.8 g/dL (32.0-36.0); Mean Corpuscular Volume 71.9 fL (80.0-100.0); Monocytes # (auto) 0.7 10 ^3/uL (0-1.3); Monocytes % (auto) 8.3 % (0.0-12.0); Neutrophils # (auto) 4.8 10 ^3/uL (1.6-8.6); Neutrophils % (auto) 59.3 % (37.0-80.0)
[2021-11-03 11:42] LABS: Potassium 3.6 mmol/L (3.5-5.1)
[2021-11-03 11:56] LABS: Albumin 3.3 g/dL (3.4-5.0); BUN/Creatinine Ratio 18.8; Bilirubin, Total 0.4 mg/dL (0.2-1.0); Calcium 8.9 mg/dL (8.5-10.1); Total Protein 7.2 g/dL (6.4-8.2)
[2021-11-03 13:14] LABS: Prostate Specific Antigen 0.36 ng/mL (0.0-4.0)
[2021-11-03 14:04] LABS: Free T4 (Free Thyroxine) 1.48 ng/dL (0.89-1.76)
== END | disposition home or self-care (01) ==
LOC: LAB 10:00
PROVIDERS: ATTEND Internal Medicine Cardiovascular Disease
DX: C61 Malignant neoplasm of prostate (principal); E11.9 Type 2 diabetes mellitus without complications; D51.3 Other dietary vitamin B12 deficiency anemia; D64.9 Anemia, unspecified; E55.9 Vitamin D deficiency, unspecified; I10 Essential (primary) hypertension; R00.2 Palpitations; R53.1 Weakness; R30.0 Dysuria
CPT/HCPCS: 36415; 80053; 80061; 81003; 82306; 82607; 83036; 84153; 84403; 84439; 84443; 85025

== ENCOUNTER 2022-01-07 02:50 | Emergency (ER) | payer OTHER, BC ==
[~2022-01-07] VITALS: Ht 177.8 cm; Wt 72.6 kg
[2022-01-07] MEDS ORDERED: ONDANSETRON HCL 4 MG/2 ML VIAL IV ONE (03:00)
[2022-01-07] MEDS ORDERED: ONDANSETRON HCL 4 MG/2 ML VIAL ONE (03:03)
[2022-01-07 03:26] LABS: Basophils # (auto) 0.1 10 ^3/uL (0-0.2); Eosinophils # (auto) 0 10 ^3/uL (0-0.8); Lymphocytes # (auto) 0.5 10 ^3/uL (0.4-5.4); Mean Corpuscular Hemoglobin 21.6 pg (28.0-32.0); Monocytes # (auto) 0.4 10 ^3/uL (0-1.3); Monocytes % (auto) 2.7 % (0.0-12.0)
[2022-01-07 03:28] LABS: Basophils % (auto) 0.6 % (0.0-2.0); Hemoglobin 9.9 g/dL (13.5-17.5); Lymphocytes % (auto) 3.3 % (10.0-50.0); Mean Corpuscular Volume 69.6 fL (80.0-100.0); Neutrophils # (auto) 14.8 10 ^3/uL (1.6-8.6); Neutrophils % (auto) 93.4 % (37.0-80.0); Red Blood Cells 4.59 10^6/uL (4.5-5.90); Red Cell Distribution Width 18.1 % (11.8-14.3); White Blood Cell 15.8 10^3/uL (4.4-10.8)
[2022-01-07 03:44] LABS: INR 1.11 (0.9-1.15); Partial Thromboplastin Time 23.7 sec (23.6-33.0)
[2022-01-07 03:48] LABS: Albumin 2.9 g/dL (3.4-5.0); BUN/Creatinine Ratio 22.8; Calcium 8.5 mg/dL (8.5-10.1); Magnesium 1.5 mg/dL (1.6-2.6); Potassium 4.2 mmol/L (3.5-5.1)
[2022-01-07 03:53] LABS: Bilirubin, Total 0.4 mg/dL (0.2-1.0); Total Protein 6.4 g/dL (6.4-8.2)
[2022-01-07 08:04] VITALS: BP 85/48
== END 2022-01-07 09:51 | disposition hospice, home (50) ==
LOC: EDUNIT# 02:50 → EDBD 02:50 → ER 02:50
DX: K92.2 Gastrointestinal hemorrhage, unspecified (principal); C80.1 Malignant (primary) neoplasm, unspecified; Z51.5 Encounter for palliative care
CPT/HCPCS: 36415; 71045; 80053; 83735; 83880; 84484; 85025; 85379; 85610; 85730; 86850; 86870; 86900; 86901; 86905; 93005; 96374; 99285; J2405